=== PATIENT | female | born 1945 | race Caucasian/White ===

== ENCOUNTER 2016-09-21 06:52 | Inpatient (IN) | payer MEDICARE, BC, OTHER ==
[~2016-09-21] VITALS: Ht 160 cm; Wt 105.4 kg
[2016-09-21] MEDS ORDERED: SIMV40TA2 PO (07:22)
[2016-09-21] MEDS ORDERED: LASI20TA PO (07:22)
[2016-09-21] MEDS ORDERED: VESI10TA PO (07:22)
[2016-09-21] MEDS ORDERED: PRESCAP PO (07:22)
[2016-09-21] MEDS ORDERED: CALC600T57 PO (07:22)
[2016-09-21] MEDS ORDERED: METO-207 PO (07:22)
[2016-09-21] MEDS ORDERED: IBUP-1114 PO (07:22)
[2016-09-21] MEDS ORDERED: DRON40TA PO (07:22)
[2016-09-21] MEDS ORDERED: CLAR1TAB2 PO (07:22)
[2016-09-21] MEDS ORDERED: LEVO25TA5 PO (07:22)
[2016-09-21] MEDS ORDERED: OMEP40CA2 PO (07:22)
[2016-09-21] MEDS ORDERED: ONDANSETRON 4MG/2ML VIAL (J2405) IV ONE ×2 (08:00→11:30)
[2016-09-21 08:31] LABS: INR 1.01
[2016-09-21 08:43] LABS: BASO % 0.3 % (0.0-1.0); EOS % 0.4 % (0.0-3.0); LARGE UNSTAINED CELL # 0.1 K/mm3 (0.0-0.4); LARGE UNSTAINED CELL % 0.8 % (0.0-4.0); LYMPH # 0.9 K/mm3 (1.5-4.5); LYMPH % 9.9 % (24.0-44.0); MEAN CORPUSCULAR HEMOGLOBIN 31.1 pg (27.0-33.0); MEAN CORPUSCULAR HGB CONC 32.5 g/dl (32.0-36.5); MEAN CORPUSCULAR VOLUME 95.6 fl (80.0-96.0); MONO # 0.4 K/mm3 (0.0-0.8); NEUTROPHILS # 7.3 K/mm3 (1.8-7.7); NEUTROPHILS % 83.6 % (36.0-66.0); PLATELET COUNT, AUTOMATED 231 k/mm3 (150-450); RED CELL DISTRIBUTION WIDTH 12.7 % (11.5-14.5); WHITE BLOOD COUNT 8.7 K/mm3 (4.0-10.0)
[2016-09-21 08:54] LABS: ALBUMIN 3.2 GM/DL (3.2-5.2); ALBUMIN/GLOBULIN RATIO 0.86 (1.00-1.93); ALKALINE PHOSPHATASE 270 U/L (45-117); ALT/SGPT 451 U/L (12-78); AMYLASE 39 U/L (25-115); ANION GAP 8 MEQ/L (8-16); AST/SGOT 686 U/L (15-37); BILIRUBIN,DIRECT 1.2 MG/DL (0.0-0.2); BLOOD UREA NITROGEN 14 MG/DL (7-18); CALCIUM LEVEL 8.5 MG/DL (8.8-10.2); CARBON DIOXIDE LEVEL 28 MEQ/L (21-32); CHLORIDE LEVEL 106 MEQ/L (98-107); CREATININE FOR GFR 0.73 MG/DL (0.55-1.02); GLOMERULAR FILTRATION RATE > 60.0 (>39); GLUCOSE, FASTING 141 MG/DL (83-110); POTASSIUM SERUM 3.9 MEQ/L (3.5-5.1); SODIUM LEVEL 142 MEQ/L (136-145); TOTAL PROTEIN 6.9 GM/DL (6.4-8.2)
[2016-09-21] MEDS ORDERED: LORATADINE 10 MG TAB PO SCH (09:00)
[2016-09-21] MEDS ORDERED: OMEPRAZOLE 20 MG CAP PO SCH (09:00)
[2016-09-21] MEDS ORDERED: SOLIFENACIN 5 MG TAB PO SCH (09:00)
--- NOTE | 2016-09-21 09:33 | REP ---
Clinical: Chest pain . Comparison: None . Technique: PA view . Findings: The mediastinum and cardiac silhouette are normal. The lung olvera are clear and without acute consolidation, effusion, or pneumothorax. The skeletal structures are intact and normal. Impression: 1. No acute cardiopulmonary process. Signed by Mp Ortiz MD 09/21/2016 09:24 A
--- NOTE | 2016-09-21 09:33 | REP ---
Clinical: Abdominal pain. Technique: Single supine view of the abdomen and pelvis. Findings: Mild fecal stasis cannot be excluded. Evidence for prior cholecystectomy noted. No bowel obstruction or obvious perforation. No organomegaly. Skeletal structures intact. Impression: Mild fecal stasis. Signed by Mp Ortiz MD 09/21/2016 09:25 A
[2016-09-21] MEDS ORDERED: GASTROGRAFIN SOLUTION 30ML (Q9963) PO ONE ×2 (10:30)
--- NOTE | 2016-09-21 10:31 | REP ---
Clinical: Elevated liver function tests. Technique: Real time johnson scale ultrasound examination using curved array transducer. Findings: The liver demonstrates coarse and echo texture suggesting fatty infiltration and/or hepatocellular disease. No focal hepatic lesions are identified. Incidental note is made of a 1.6 cm simple hepatic cyst in the caudate lobe. The pancreas is incompletely evaluated due to interposed bowel gas but visualized portions appear normal. The patient is status post cholecystectomy with compensatory dilatation to the common bile duct measuring 10 mm diameter and a and the right kidney is normal in reniform shape without hydronephrosis and measures 11.3 x 6.1 x 5.1 cm. No ascites. Impression: 1. Coarsened hepatic echotexture consistent with fatty infiltration and/or hepatocellular disease. Incidental 1.6 cm cyst in the caudate lobe. 2. Status post cholecystectomy with normal compensatory CBD dilatation. Signed by Mp Ortiz MD 09/21/2016 10:22 A
[2016-09-21] MEDS ORDERED: ISOVUE-370 76% 100ML VIAL (Q9967) As Ordered ONE (12:04)
--- NOTE | 2016-09-21 12:48 | REP ---
Clinical: Abdominal pain and emesis with history of cancer. Technique: Axial contrast enhanced images from the lung bases to the pubic symphysis using oral and 100 ml Isovue 370 intravenous contrast material with coronal and sagittal re-formations. Comparison: None. Findings: The patient is status post cholecystectomy with significant intrahepatic and extrahepatic biliary ductal dilatation and evidence for soft tissue filling defects presumably obstructing the distal common bile duct at the level of the pancreatic head and ampulla (images 56 - 72). The liver is otherwise unremarkable. Spleen, pancreas, bilateral adrenal glands and kidneys are normal. The enteric system is without obstruction or acute inflammatory process. Normal terminal ileum and appendix identified in the right lower. Colonic/sigmoid diverticula noted without acute diverticulitis. Pelvis demonstrates partially collapsed normal bladder and evidence for prior hysterectomy. Abdominal aorta without aneurysm or dissection. No ascites. No free air. No significant adenopathy. Degenerative changes to the lumbosacral spine. Lung bases demonstrate minimal atelectasis (left greater than right). Impression: 1. Significant intrahepatic and extrahepatic biliary ductal dilatation with filling defects identified in the mid to distal common bile duct extending to the ampulla and compatible with residual choledocholithiasis. GI consultation and ERCP may be warranted. 2. Diverticulosis without acute diverticulitis. 3. Mild basilar atelectasis. Signed by Mp Ortiz MD 09/21/2016 12:40 P
[2016-09-21] MEDS ORDERED: PROA1AER INH (13:43)
[2016-09-21] MEDS ORDERED: BENZ100C5 PO (13:43)
[2016-09-21] MEDS ORDERED: AZEL0.1S3 (13:43)
[2016-09-21] MEDS ORDERED: SIMV10TA2 PO (13:43)
[2016-09-21] MEDS ORDERED: MORPHINE 2 MG/ML 1ML SYRINGE As Ordered ONE (15:38)
[2016-09-21] MEDS ORDERED: MORPHINE 2 MG/ML 1ML SYRINGE IV ONE (15:45)
[2016-09-21] MEDS ORDERED: BISACODYL 5 MG TAB PO PRN (15:45)
[2016-09-21] MEDS ORDERED: MORPHINE 2 MG/ML 1ML SYRINGE IV PRN (15:45)
[2016-09-21] MEDS ORDERED: IBUPROFEN 600 MG TAB PO PRN (16:45)
[2016-09-21 17:21] VITALS: BP 113/56
--- NOTE | 2016-09-21 18:12 | HPE ---
DATE OF ADMISSION: 09/21/2016 PRIMARY CARE PROVIDER: Dr. Jarod Hines at [facility] in [place], [place]. CHIEF COMPLAINT: Abdominal pain, nausea, vomiting. HISTORY OF PRESENT ILLNESS Mrs. Strong is a 71-year-old female with past medical history significant for hypothyroidism, hyperlipidemia, allergic rhinitis, fatty liver, endometrial cancer, and questionable atrial flutter, who presents to the emergency department complaining of abdominal pain. The patient reports that she has been experiencing right upper and epigastric pain since last night. It started about one hour after she ate fried fish and ice cream. She described it as a dull ache radiating to both sides of her back with associated chills, nausea and several episodes of nonbloody, nonbilious emesis. The patient has history of necrotizing cholecystitis in 2011, status post laparoscopic cholecystectomy that had to be converted to an open cholecystectomy secondary to full thickness necrosis of the gallbladder wall. Intraoperative cholangiogram was not performed secondary to inability to cannulate the cystic duct, and the decision was made not to perform a full common bile duct exploration. Gallbladder was removed and the patient was doing well. No symptoms of abdominal pain in the interim until last night. She denies any fevers or significant weight loss. No diarrhea but has history of chronic constipation for which she takes occasional stool softeners. No lightheadedness, dizziness, chest pain/pressure, shortness of breath, hematochezia, melena or urinary complaints. She reports that she was recently treated for bronchitis with antibiotics and has an occasional residual cough, but not as it was prior. In the emergency department the patient's vitals were stable. She was afebrile with normal white count. The patient had an abdomen/pelvis CT performed which revealed intrahepatic and extrahepatic biliary ductal dilatation with filling defects identified in the mid to distal common bile duct extending to the ampulla, compatible with residual choledocholithiasis. At this point in time, hospitalist service was called to admit. The patient has history of elevated liver enzymes dating back to September 2015, where AST was 107 and ALT was 157. In October 2015, she had an ultrasound which revealed fatty infiltration of the liver. PAST MEDICAL HISTORY 1. Hyperthyroidism, status post radioactive iodine in 2000, with resulting hypothyroidism. 2. Gastroesophageal reflux disease (GERD). 3. Hyperlipidemia. 4. Allergic rhinitis. 5. Questionable atrial flutter. 6. Stage I endometrial cancer status post total hysterectomy. 7. Fatty infiltration of the liver. 8. Bladder incontinence. 9. History of mechanical cardioversion in 2011 PAST SURGICAL HISTORY 1. Cholecystectomy in 2011. 2. Complete hysterectomy in 2012. 3. Cataract surgery 2012. 4. Colonoscopy. 5. Tonsillectomy when she was [age]. HOME MEDICATIONS - albuterol sulfate inhaler two puffs inhaled four times a day as needed - azelastine two sprays in each nares daily as needed - benzonatate 100 mg by mouth every eight hours as needed - Lasix 20 mg by mouth daily as needed - ibuprofen 400 mg by mouth every six hours as needed - calcium plus vitamin D two tablets by mouth at night - PreserVision one capsule by mouth at night - Multaq 400 mg by mouth twice daily - Synthroid 25 mcg by mouth daily - Claritin 10 mg by mouth daily - metoprolol 50 mg by mouth at night - omeprazole 20 mg daily - simvastatin 10 mg at night - Vesicare 10 mg by mouth daily ALLERGIES: 1. DILAUDID (breathing issues secondary to receiving too much medication). 2. AMBIEN (severe headache). 3. NICKEL (rash). SOCIAL HISTORY The patient is a former smoker, quit in 1976. Smoked for less than 10 years. Rare alcohol use. No illicit drugs. She lives with her . There is one guinea pig in the home. No recent travel outside of [place], no sick contacts. FAMILY HISTORY She has two children who are relatively healthy. Father had history of ulcers, arthritis, Alzheimer's disease. Mom had history of a stroke and spinal stenosis. REVIEW OF SYSTEMS GENERAL: The patient admits to chills. No fevers or night sweats. No significant weight changes. HEENT: No headache, lightheadedness, dizziness. No blurry or double vision. No acute changes to vision or hearing. CARDIOVASCULAR: Denies any chest pain/pressure. No palpitations or shortness of breath with exertion. She has occasional swelling of her lower extremity. PULMONARY: No shortness of breath. No hemoptysis. Has occasional residual cough from recently being treated for bronchitis. GASTROINTESTINAL: Positive for nausea and several episodes of nonbilious, nonbloody emesis. Positive for right upper quadrant and epigastric dull pain. No hematochezia or melena. Has history of chronic constipation. GENITOURINARY: No increased urinary frequency or urgency. She does have bladder incontinence. No dysuria or hematuria. ENDOCRINE: No history of diabetes. She does have history of hyperthyroidism for which she received radioactive iodine and has residual hypothyroidism. INTEGUMENT: No unusual rashes or skin lesions. MUSCULOSKELETAL: No unusual muscle or joint pains. NEUROLOGIC: No syncope. No paresthesias. PHYSICAL EXAMINATION VITAL SIGNS: Temperature 97.7, pulse of 60, respiratory rate 18, blood pressure 139/60, pulse oximetry 90% on room air. GENERAL: The patient is alert and oriented in no acute distress. HEENT: Normocephalic, atraumatic. Extraocular muscles are intact. Pupils are equally round and reactive to light. No scleral icterus. Moist mucosa. NECK: Supple. No cervical lymphadenopathy. No thyromegaly or jugular venous distension appreciated. HEART: Normal S1, S2, regular rate and rhythm. I did not appreciate a murmur. LUNGS: Clear to auscultation bilaterally. No rales, rhonchi or wheezing. ABDOMEN: Obese, soft, tender in the epigastric region. Bowel sounds are present. No rebound, guarding or rigidity. EXTREMITIES: No cyanosis or edema. Positive pedal pulses bilaterally. SKIN: Warm and dry. No rashes noted. NEUROLOGIC: No focal deficits. Cranial nerves II through XII are grossly intact. Motor and sensation intact. LABORATORY DATA WBC 8.7, hemoglobin 13.7, hematocrit 42.2, platelet count 231. Sodium 142, potassium 3.9, chloride 106, carbon dioxide 28, anion gap 8, BUN 14, creatinine 0.73, GFR greater than 60, fasting glucose 141, calcium 8.5, total bilirubin 2.0, direct bilirubin 1.2, AST 686, ALT 451, alkaline phosphatase 270. Total creatinine kinase 85, total protein 6.9, albumin 3.2, amylase 39, lipase 124. TSH 1.29, free T4 1.3. PT 13.4, INR 1.01, APTT 32.2. IMAGING The patient had a chest x-ray performed which showed no acute cardiopulmonary process. She had abdominal x-ray performed which showed mild fecal stasis. No obstruction or perforation. The gallbladder ultrasound revealed coarsened hepatic echo texture consistent with fatty infiltration and/or hepatocellular disease. Incidental 1.6 cm cyst found, status post cholecystectomy with compensatory dilatation of the common bile duct. Abdomen/pelvis CT revealed significant intrahepatic and extrahepatic biliary ductal dilatation with filling defects identified in the mid to distal common bile duct extending to the ampulla and compatible with residual choledocholithiasis. Diverticulosis without acute diverticulitis and mild basilar atelectasis. The patient had EKG which showed sinus rhythm, left axis deviation, low voltage in the precordial leads and possibly old anterior TX. ASSESSMENT AND PLAN: 1. Choledocholithiasis. The patient has history of necrotizing cholecystitis with cholecystectomy in 2011. Intraoperative cholangiogram was unable to be performed secondary to them being unable to cannulate the cystic duct. Se likely has residual stone from that time; however, she has been asymptomatic until this point. She is afebrile and does not have a white count. CT of the abdomen and pelvis revealed filling defects in the mid to distal common bile duct. Gastroenterology has been consulted and likely to have endoscopic retrograde cholangiopancreatography (ERCP) on Friday. Dr. Godinez recommended antibiotic therapy, so she will be initiated on Zosyn. Pain medication as needed. Anti-emetics as needed. She will be on a clear liquid diet for the time being. 2. Questionable heart arrhythmia. The patient is on Multaq. She believes that she may have been diagnosed with atrial flutter but is unsure of the exact diagnosis. She does have history of mechanical cardioversion in 2011. Continue with her home medication of Multaq. 3. Hypothyroidism. Continue Synthroid. 4. Hyperlipidemia. Continue with simvastatin. 5. Gastroesophageal reflux disease (GERD). Continue with Prilosec. 6. Allergic rhinitis. Continue Claritin. 7. History of bladder incontinence. Continue VESIcare. 8. History of stage I endometrial cancer status post complete hysterectomy and 2012. 9. History of fatty infiltration of the liver. Monitor liver enzymes after ERCP. She does have history of elevated liver enzyme back in 2015, and ultrasound at that time revealed a fatty infiltration of the liver. 10. Deep venous thrombosis (DVT) prophylaxis with subcutaneous heparin. The patient will be admitted as inpatient to medicine/surgery. Dr. Mauricio to take over her care in the morning. CODE STATUS: The patient is full code. My preceptor for this patient encounter was Dr. Teresa Pop. The preceptor was physically present in the building during the encounter and was fully available as needed. All aspects of the patient interview, examination, medical decision making process, and medical care plan development were reviewed and approved by the preceptor. The preceptor is aware and concurs with the plan as stated in the body of this note and will attest to such by his/her co-signature.
[2016-09-21] MEDS: PIPERACILLIN/TAZOBACTAM SOD 3.375 GM in D5W MINI-BAG PLUS 50 ML IV SCH ×2 (18:48→23:45)
[2016-09-21] MEDS: PANTOPRAZOLE 40MG INJ (PROTONIX) (C9113) IV SCH (20:27)
[2016-09-21] MEDS: HEPARIN SOD (PORCINE) 5000 UNITS/ML VIAL SC SCH (20:27)
[2016-09-21] MEDS: DRONEDARONE 400 MG TAB (MULTAQ) PO SCH (20:28)
[2016-09-21] MEDS: METOPROLOL SUCC (TopROL XL) 50MG **XL** TAB PO SCH (20:32)
[2016-09-21] MEDS ORDERED: SIMVASTATIN 10 MG TAB PO SCH (21:00)
[2016-09-21 22:00] VITALS: BP 122/72
[2016-09-22] MEDS: HEPARIN SOD (PORCINE) 5000 UNITS/ML VIAL SC SCH ×3 (05:56→20:24)
[2016-09-22] MEDS: PIPERACILLIN/TAZOBACTAM SOD 3.375 GM in D5W MINI-BAG PLUS 50 ML IV SCH ×4 (05:56→23:35)
[2016-09-22] MEDS: LEVOTHYROXINE 0.025 MG TAB (25 MCG) PO SCH (05:56)
[2016-09-22 06:00] VITALS: BP 113/75
[2016-09-22 06:44] LABS: MEAN CORPUSCULAR HEMOGLOBIN 31.4 pg (27.0-33.0); MEAN CORPUSCULAR HGB CONC 32.6 g/dl (32.0-36.5); MEAN CORPUSCULAR VOLUME 96.5 fl (80.0-96.0); RED CELL DISTRIBUTION WIDTH 12.8 % (11.5-14.5); WHITE BLOOD COUNT 9.3 K/mm3 (4.0-10.0)
[2016-09-22 07:01] LABS: ALBUMIN/GLOBULIN RATIO 1.03 (1.00-1.93); ALKALINE PHOSPHATASE 353 U/L (45-117); ALT/SGPT 460 U/L (12-78); ANION GAP 7 MEQ/L (8-16); AST/SGOT 405 U/L (15-37); BILIRUBIN,TOTAL 5.4 MG/DL (0.2-1.0); BLOOD UREA NITROGEN 8 MG/DL (7-18); CALCIUM LEVEL 8.2 MG/DL (8.8-10.2); CARBON DIOXIDE LEVEL 29 MEQ/L (21-32); CHLORIDE LEVEL 106 MEQ/L (98-107); CREATININE FOR GFR 0.82 MG/DL (0.55-1.02); GLOMERULAR FILTRATION RATE > 60.0 (>39); GLUCOSE, FASTING 104 MG/DL (83-110); SODIUM LEVEL 142 MEQ/L (136-145); TOTAL PROTEIN 5.9 GM/DL (6.4-8.2)
[2016-09-22] MEDS ORDERED: NS 1,000 ML IV SCH (07:45)
[2016-09-22] MEDS ORDERED: KETOROLAC 30 MG/ML VIAL (J1885) IV SCH (08:00)
[2016-09-22] MEDS: DRONEDARONE 400 MG TAB (MULTAQ) PO SCH ×2 (12:27→20:24)
[2016-09-22 14:00] VITALS: BP 138/76
--- NOTE | 2016-09-22 16:01 | IPNPDOC ---
Text Note Date of Service The patient was seen on 09/22/16. NOTE Subjective: Abd pain resolved. Objective: Vitals: (see below) General: No acute distress, laying comfortably in bed. HEENT: Moist mucous membranes. Neck: No JVD or lymphadenopathy Cardiac: RRR, No murmurs Pulm: Clear to auscultation b/l. No wheezing, rhonchi Abd: NT/ND + BS. Obese. Old open karsten scar. Ext: No edema or cyanosis Labs (see below) Images: CT abd/pelvis 09/22/16 Impression: 1. Significant intrahepatic and extrahepatic biliary ductal dilatation with filling defects identified in the mid to distal common bile duct extending to the ampulla and compatible with residual choledocholithiasis. GI consultation and ERCP may be warranted. 2. Diverticulosis without acute diverticulitis. 3. Mild basilar atelectasis. Assessment/Plan 1. Choledocholithiasis - H/o necrotizing cholecystitis with cholecystectomy in 2011. Intraoperative cholangiogram was unable to be performed secondary to them being unable to cannulate the cystic duct. LFTs/ Bili rising, however Abd pain resolved. Afebrile now. On Zosyn. GI on board - plan for ERCP tomorrow. MRI is down so unable to do MRCP today. Hemodynamically stable. 2. H/o arrhythmia on Multaq? will need to obtain outpt PCP records tomorrow. 3. Hypothyroidism. Continue Synthroid. 4. Hyperlipidemia. Continue with simvastatin. 5. Gastroesophageal reflux disease (GERD). Continue with Prilosec. 6. Allergic rhinitis. Continue Claritin. 7. History of bladder incontinence. Continue VESIcare. 8. History of stage I endometrial cancer status post complete hysterectomy and 2012. 9. History of fatty infiltration of the liver. Will need to address after episode of choledocolithiasis resolves. DVT prophy: Hep SQ VS,Fishbone, I+O VS, Fishbone, I+O Laboratory Tests 09/22/16 06:22 Red Blood Count 4.22, Mean Corpuscular Volume 96.5 H, Mean Corpuscular Hemoglobin 31.4, Mean Corpuscular Hemoglobin Concent 32.6, Red Cell Distribution Width 12.8, Calcium Level 8.2 L, Aspartate Amino Transf (AST/SGOT) 405 H, Alanine Aminotransferase (ALT/SGPT) 460 H, Alkaline Phosphatase 353 H, Total Bilirubin 5.4 #H, Total Protein 5.9 L, Albumin 3.0 L Vital Signs Date Time Temp Pulse Resp B/P (MAP) Pulse Ox O2 Delivery O2 Flow Rate FiO2 09/22/16 14:48 Room Air 94.0 09/22/16 06:00 100.0 63 18 113/75 (88) 94 I&O- Last 24 Hours up to 6 AM 09/22/16 05:59 Intake Total 640 ml Output Total 1 ml Balance 639 ml LIANG ALEJANDRO MD September 22, 2016 16:01
--- NOTE | 2016-09-22 19:48 | ECGEPIP ---
Stationary ECG Study [facility] - ED Test Date: 2016-09-21 Pat Name: RAI NEWELL Department: Room: - Gender: F Rn Burn: amy : 1945 Requested By: Lupillo Betancur Order Number: [id number] Reading MD: Chanda Pickering Measurements Intervals [place] Rate: 69 P: -5 AK: 178 QRS: -36 QRSD: 109 T: 29 QT: 434 QTc: 465 Interpretive Statements SINUS RHYTHM MARKED LEFT AXIS DEVIATION LOW QRS VOLTAGE IN PRECORDIAL LEADS POSSIBLE ANTERIOR MYOCARDIAL INFARCTION, PROBABLY OLD NO PRIOR FOR COMPARISON Electronically Signed On 09-22-2016 19:47:45 EDT by Chanda Pickering
[2016-09-22] MEDS: KETOROLAC 30 MG/ML VIAL (J1885) IV PRN (20:23)
[2016-09-22] MEDS: PANTOPRAZOLE 40MG INJ (PROTONIX) (C9113) IV SCH (20:24)
[2016-09-22] MEDS: METOPROLOL SUCC (TopROL XL) 50MG **XL** TAB PO SCH (20:33)
[2016-09-22 22:00] VITALS: BP 122/68
[2016-09-23] VITALS (7 sets, daily range): BP systolic 113–165; BP diastolic 63–73
[2016-09-23] MEDS: LEVOTHYROXINE 0.025 MG TAB (25 MCG) PO SCH (05:43)
[2016-09-23] MEDS: HEPARIN SOD (PORCINE) 5000 UNITS/ML VIAL SC SCH ×3 (05:43→21:29)
[2016-09-23] MEDS: PIPERACILLIN/TAZOBACTAM SOD 3.375 GM in D5W MINI-BAG PLUS 50 ML IV SCH ×4 (05:43→22:54)
[2016-09-23 06:49] LABS: MEAN CORPUSCULAR HEMOGLOBIN 31.9 pg (27.0-33.0); MEAN CORPUSCULAR HGB CONC 32.6 g/dl (32.0-36.5); MEAN CORPUSCULAR VOLUME 97.9 fl (80.0-96.0); RED CELL DISTRIBUTION WIDTH 12.8 % (11.5-14.5); WHITE BLOOD COUNT 5.1 K/mm3 (4.0-10.0)
[2016-09-23 06:54] LABS: ALBUMIN 2.7 GM/DL (3.2-5.2); ALBUMIN/GLOBULIN RATIO 0.84 (1.00-1.93); ALKALINE PHOSPHATASE 269 U/L (45-117); ALT/SGPT 277 U/L (12-78); ANION GAP 3 MEQ/L (8-16); AST/SGOT 158 U/L (15-37); BILIRUBIN,TOTAL 3.3 MG/DL (0.2-1.0); BLOOD UREA NITROGEN 6 MG/DL (7-18); CALCIUM LEVEL 8.3 MG/DL (8.8-10.2); CARBON DIOXIDE LEVEL 31 MEQ/L (21-32); CHLORIDE LEVEL 112 MEQ/L (98-107); CREATININE FOR GFR 0.69 MG/DL (0.55-1.02); GLOMERULAR FILTRATION RATE > 60.0 (>39); GLUCOSE, FASTING 102 MG/DL (83-110); POTASSIUM SERUM 3.6 MEQ/L (3.5-5.1); SODIUM LEVEL 146 MEQ/L (136-145); TOTAL PROTEIN 5.9 GM/DL (6.4-8.2)
[2016-09-23] MEDS ORDERED: PREVNAR 13 VACCINE SYRINGE (CPT CODE:90670) IM SCH (09:00)
[2016-09-23] MEDS: ONDANSETRON 4MG/2ML VIAL (J2405) IV PRN ×2 (09:06→22:54)
[2016-09-23] MEDS: KETOROLAC 30 MG/ML VIAL (J1885) IV PRN (09:07)
[2016-09-23] MEDS: DRONEDARONE 400 MG TAB (MULTAQ) PO SCH ×2 (09:07→21:00)
--- NOTE | 2016-09-23 10:45 | IPN ---
DATE: 09/23/2016 SUBJECTIVE: The patient was seen this morning at bedside. She states that she had some trouble sleeping. She does have pulse oximetry in place without any significant desaturations overnight. She denies any abdominal pain, nausea or vomiting. She did have a low grade temperature last night of 100.1. No chest pain/pressure, palpitations or shortness of breath. Vitals are stable this morning. No diarrhea. OBJECTIVE: Vital Signs: Temperature 98.1, pulse 55, respiratory rate 18, blood pressure 113/67, pulse oximetry 97% on 2 liters. General: The patient is alert and oriented in no acute distress. HEENT: Normocephalic, atraumatic. Extraocular muscles are intact. Moist mucosa. Neck: Supple. No cervical lymphadenopathy. No thyromegaly. Heart: Normal S1, S2, regular. No murmur appreciated. Lungs: Clear to auscultation bilaterally. Abdomen: Obese, soft, nontender. No rebound, guarding or rigidity. Bowel sounds are present. Extremities: No cyanosis or edema. Positive pedal pulses bilaterally. Skin: Warm and dry. No rashes noted. Neurologic: No focal deficits. Cranial nerves II-XII are grossly intact. Motor sensation intact. LABORATORY DATA: WBC 5.1, hemoglobin 12.1, hematocrit 37.1, platelet count 185. Sodium 146, potassium 2.6, chloride 112, carbon dioxide 31, anion gap 3, BUN 6, creatinine 0.69, GFR greater than 60, fasting glucose 102, calcium 8.3, total bilirubin 3.3, AST 158, ALT 277, alkaline phosphatase 269, total protein 5.9, albumin 2.7. ASSESSMENT/PLAN: 1. Choledocholithiasis. The patient has history of necrotizing cholecystitis with cholecystectomy in 2011. Intraoperative cholangiogram was unable to be performed secondary to them not being able to cannulate the cystic duct. She had a CT of the abdomen which showed filling defects in the mid to distal common bile duct. Gastroenterology is on board and she will have ERCP done today, later on this afternoon. She remains on Zosyn. No GI symptoms at present. Her bilirubin as well as liver enzymes are trending downwards. She is afebrile this morning and vitals are stable. Pain medication as needed. 2. Mild hypernatremia. Sodium is currently 146. Will continue to monitor for now. Once she is eating again, will encourage by mouth (p.o.) intake. 3. Questionable heart arrhythmia. The patient is on Multaq and it is not completely clear why she is on this. She does give history of mechanical cardioversion in 2011 presumed for possibly atrial flutter. Will obtain records from her primary care provider today to try to establish to the actual diagnosis. The patient reports that she is also on metoprolol since that time. 4. Hypothyroidism. Continue Synthroid. 5. Hyperlipidemia. Continue with simvastatin. 6. Gastroesophageal reflux disease. The patient is currently on IV Protonix while inpatient. 7. Allergic rhinitis. Continue Claritin. 8. History of bladder incontinence. Continue VESIcare. 9. History of stage I endometrial cancer status post complete hysterectomy in 2012. 10. History of fatty infiltration of liver. Will continue to monitor liver enzymes following ERCP. If they remain elevated, this can be followed as outpatient. She had an ultrasound done last year which only showed fatty infiltration of the liver. 11. Deep vein thrombosis (DVT) prophylaxis. The patient is on subcutaneous heparin. My preceptor for this patient encounter was Dr. Niraj Mauricio. The preceptor was physically present in the building during the encounter and was fully available. As needed, all aspects of the patient interview, examination, medical decision making process, and medical care plan development were reviewed and approved by the preceptor. The preceptor is aware and concurs with the plan as stated in the body of this note and will attest to such by his/her cosignature.
[2016-09-23] MEDS ORDERED: SIMETHICONE 40MG/0.6ML DROPS 30ML As Ordered ONE (15:38)
[2016-09-23] MEDS ORDERED: ONDANSETRON 4MG/2ML VIAL (J2405) As Ordered ONE (16:25)
[2016-09-23] MEDS ORDERED: PROPOFOL 200 MG/20 ML VIAL As Ordered ONE (16:25)
[2016-09-23] MEDS ORDERED: ROCURONIUM BROMIDE 50 MG/5 ML VIAL As Ordered ONE (16:25)
[2016-09-23] MEDS ORDERED: LIDOCAINE 2% INJ 100 MG/5 ML SDV (FOR ANES.) As Ordered ONE (16:26)
[2016-09-23] MEDS ORDERED: ISOVUE-300 61% 50ML VIAL (Q9967) As Ordered ONE ×2 (16:26→17:21)
[2016-09-23] MEDS ORDERED: fentaNYL 100 MCG/2 ML INJECTION (J3010) As Ordered ONE (16:27)
[2016-09-23] MEDS ORDERED: MIDAZOLAM INJ 2 MG/2 ML VIAL (J2250) As Ordered ONE (16:27)
[2016-09-23] MEDS ORDERED: ePHEDrine SULFATE 25 MG/5 ML(5MG/ML) SYRINGE As Ordered ONE ×2 (17:41→17:46)
[2016-09-23] MEDS ORDERED: SUGAMMADEX SODIUM 500 MG/5 ML VIAL (BRIDION) As Ordered ONE (17:54)
--- NOTE | 2016-09-23 18:26 | ROOR ---
Patient Name: Alyssa Strong Procedure Date: 09/23/2016 4:48 PM Date of : 1945 Age: 71 Room: Main OR Gender: Female Note Status: Finalized Procedure: ERCP Indications: Abdominal pain of suspected biliary origin, Abnormal abdominal CT, Bile duct stone on Computed Tomogram Scan, Evaluation and possible treatment of bile duct stone(s), Jaundice Providers: Tip GODINEZ MD Referring MD: 1. No Referring Physician 1. No Referring Physician, Admin. Requesting Provider: Medicines: General Anesthesia Complications: No immediate complications. Procedure: Pre-Anesthesia Assessment: - The heart rate, respiratory rate, oxygen saturations, blood pressure, adequacy of pulmonary ventilation, and response to care were monitored throughout the procedure. The Duodenoscope was introduced through the mouth, and advanced to the duodenum and used to inject contrast into the bile duct. The ERCP was accomplished without difficulty. The patient tolerated the procedure well. Findings: The floorworker lasting film was normal. The esophagus was successfully intubated under direct vision. The scope was advanced to a normal major papilla in the descending duodenum without detailed examination of the pharynx, larynx and associated structures, and upper GI tract. The upper GI tract was grossly normal. A straight Roadrunner wire was passed into the biliary tree. The bile duct was then deeply cannulated over the guidewire. Contrast was injected. I personally interpreted the bile duct images. Ductal flow of contrast was adequate. Image quality was adequate. Contrast extended to the entire biliary tree. Opacification of the entire biliary tree except for the gallbladder was done. A cholecystectomy had been performed. The entire biliary tree was markedly dilated. The entire main bile duct was filled with many small and large stones, sludge and debris. A 9 mm biliary sphincterotomy was made with a traction (standard) sphincterotome using ERBE electrocautery. There was no post-sphincterotomy bleeding. To discover objects, the biliary tree was swept with a 15 mm balloon starting at the bifurcation. Sludge was swept from the duct. Many stones were removed. Large quantities of debris/sludge and numerous soft stones were extracted with repeated passes with the balloon. The biliary tree is markedly dilated and density of contrast at some point prohibits a good clean cholangiogram. While I am fairly certain that the duct is now free of debris and stones, there is a possibility of a smaller stone or debis escaped detection and has been left behind today. I decided to place a stent and allow for decompression of the bile duct, in order to return in 1-2 months for a better cholangiogram. One 10 Fr by 7 cm temporary stent was placed into the common bile duct. Bile flowed through the stent. The stent was in good position. Impression: - The entire biliary tree was markedly dilated. - Large Choledocholithiasis/debris was found in the common bile duct. - At least partial, if not complete removal was accomplished with biliary sphincterotomy and balloon sweep. - A 10F, 7 cm plastic stent was inserted. Recommendation: - Repeat ERCP in 2 months for retreatment. - Advance diet as tolerated. - Watch for pancreatitis, bleeding, perforation, and cholangitis. - Observe patient's clinical course following today's ERCP with therapeutic intervention. Tip Godinez MD Tip GODINEZ MD 09/23/2016 6:26:15 PM This report has been signed electronically. Number of Addenda: 0 Note Initiated On: 09/23/2016 4:48 PM Estimated Blood Loss: Estimated blood loss: none.
[2016-09-23] MEDS ORDERED: fentaNYL 100 MCG/2 ML INJECTION (J3010) IV PRN (18:30)
[2016-09-23] MEDS ORDERED: ONDANSETRON 4MG/2ML VIAL (J2405) IV PRN (18:30)
[2016-09-23] MEDS ORDERED: LR 1,000 ML IV SCH (18:30)
[2016-09-23] MEDS ORDERED: MORPHINE 2 MG/ML 1ML SYRINGE IV PRN (18:30)
[2016-09-23] MEDS ORDERED: PERCOCET 5MG/325MG TAB PO PRN (18:30)
[2016-09-23] MEDS ORDERED: FAMOTIDINE 20 MG TAB PO PRN (19:15)
[2016-09-23] MEDS: METOPROLOL SUCC (TopROL XL) 50MG **XL** TAB PO SCH (21:31)
[2016-09-24] VITALS (7 sets, daily range): BP systolic 125–157; BP diastolic 58–71
[2016-09-24] MEDS: HEPARIN SOD (PORCINE) 5000 UNITS/ML VIAL SC SCH ×3 (05:30→20:35)
[2016-09-24] MEDS: LEVOTHYROXINE 0.025 MG TAB (25 MCG) PO SCH (05:30)
[2016-09-24] MEDS: PIPERACILLIN/TAZOBACTAM SOD 3.375 GM in D5W MINI-BAG PLUS 50 ML IV SCH ×3 (05:30→17:00)
[2016-09-24 06:34] LABS: MEAN CORPUSCULAR HEMOGLOBIN 31.3 pg (27.0-33.0); MEAN CORPUSCULAR HGB CONC 32.5 g/dl (32.0-36.5); MEAN CORPUSCULAR VOLUME 96.5 fl (80.0-96.0); RED CELL DISTRIBUTION WIDTH 12.9 % (11.5-14.5); WHITE BLOOD COUNT 9.7 K/mm3 (4.0-10.0)
[2016-09-24 06:50] LABS: ALBUMIN 2.5 GM/DL (3.2-5.2); ALBUMIN/GLOBULIN RATIO 0.74 (1.00-1.93); ALKALINE PHOSPHATASE 252 U/L (45-117); ALT/SGPT 204 U/L (12-78); ANION GAP 8 MEQ/L (8-16); AST/SGOT 91 U/L (15-37); BILIRUBIN,TOTAL 2.5 MG/DL (0.2-1.0); BLOOD UREA NITROGEN 6 MG/DL (7-18); CALCIUM LEVEL 8.1 MG/DL (8.8-10.2); CARBON DIOXIDE LEVEL 28 MEQ/L (21-32); CHLORIDE LEVEL 106 MEQ/L (98-107); CREATININE FOR GFR 0.63 MG/DL (0.55-1.02); GLOMERULAR FILTRATION RATE > 60.0 (>39); GLUCOSE, FASTING 100 MG/DL (83-110); POTASSIUM SERUM 3.4 MEQ/L (3.5-5.1); SODIUM LEVEL 142 MEQ/L (136-145); TOTAL PROTEIN 5.9 GM/DL (6.4-8.2)
[2016-09-24] MEDS ORDERED: POTASSIUM CHLORIDE 10 MEQ SR TABLET PO ONE (07:30)
--- NOTE | 2016-09-24 08:50 | REP ---
ERCP EXAMINATION: 12 views. HISTORY: Abdominal pain. 6 minutes 6 seconds of fluoroscopy time is reported. FINDINGS: A sequence of 12 fluoroscopically obtained last image hold spot radiographs of the right upper quadrant document endoscopic common bile duct cannulation, contrast injection and balloon catheter manipulation. Early images demonstrate filling defects in the choledochus consistent with choledocholithiasis. Final films demonstrate a common bile duct stent in place. The common bile duct is dilated and the a few visualized intrahepatic bile ducts are somewhat prominent. Signed by Kole Pang MD 09/24/2016 05:07 P
[2016-09-24] MEDS: DRONEDARONE 400 MG TAB (MULTAQ) PO SCH ×2 (08:58→20:34)
[2016-09-24] MEDS ORDERED: diphenhydrAMINE 25 MG CAP PO PRN (15:30)
--- NOTE | 2016-09-24 17:36 | IPN ---
DATE: 09/24/2016 SUBJECTIVE: Ms. Strong was seen this morning at bedside. She has been afebrile. Vital signs are stable. She denies any nausea, vomiting, abdominal pain, diarrhea. No chest pain/pressure, palpitations, or shortness of breath. The patient tolerated endoscopic retrograde cholangiopancreatography (ERCP) well without any significant issues. She is tolerating a diet without increase in symptoms. OBJECTIVE: VITAL SIGNS: Temperature 99.1, pulse 68, respiratory rate 19, blood pressure 127/59, pulse oximetry 94% on room air. GENERAL: The patient is alert and oriented in no acute distress. HEENT: Normocephalic, atraumatic. Extraocular muscles are intact. Moist mucosa. NECK: Supple. No cervical lymphadenopathy. No thyromegaly. HEART: Normal S1, S2, regular rate and rhythm. No murmur appreciated. LUNGS: Clear to auscultation bilaterally. No rales, rhonchi, or wheezing. ABDOMEN: Soft, obese, nontender. No rebound, guarding, or rigidity. Bowel sounds are present. EXTREMITIES: No cyanosis or edema. Positive pedal pulses bilaterally. SKIN: Warm and dry. No rashes noted. NEUROLOGIC: No focal deficits. Cranial nerves: II-XII are grossly intact. Motor and sensation intact. LABORATORY DATA: WBC 9.7, hemoglobin 11.7, hematocrit 36.1, platelet count 180. Sodium 142, potassium 3.4, chloride 106, carbon dioxide 28, anion gap 8, BUN 6, creatinine 0.63, GFR greater than 60, fasting glucose 100, calcium 8.1. Total bilirubin 2.5, AST 91, ALT 204, alkaline phosphatase 252, total protein 5.9, albumin 2.5. ASSESSMENT AND PLAN: 1. Choledocholithiasis. The patient has history of necrotizing cholecystitis with cholecystectomy in 2011. Intraoperative cholangiogram was unable to be performed secondary to not being able to cannulate the cystic duct. She underwent endoscopic retrograde cholangiopancreatography (ERCP) yesterday, and a large stone was found with biliary tree dilatation. Biliary sphincterotomy and balloon sweep was performed, and a plastic stent was inserted. The patient will need to repeat ERCP in 2 months for retreatment. She has been doing well after the procedure without any nausea, vomiting, or abdominal pain. She has been tolerating oral intake. She remains on Zosyn. Bilirubin and liver enzymes are trending downward. She is afebrile and vital signs are stable. 2. Heart arrhythmia continue with Multaq. She has history of mechanical cardioversion in 2011. She also reports being on metoprolol since being diagnosed with this arrhythmia. 3. Hypothyroidism. Continue Synthroid. 4. Hyperlipidemia. Continue simvastatin. 5. Gastroesophageal reflux disease (GERD). The patient is on the patient is on Pepcid. 6. Allergic rhinitis. Continue Claritin. 7. History of bladder incontinence. Continue VESIcare. 8. History of fatty infiltration of liver. Monitor liver enzymes following ERCP. 9. History of stage I endometrial cancer status post complete hysterectomy in 2012. 10. Deep vein thrombosis (DVT) prophylaxis. The patient is on subcutaneous heparin.
[2016-09-24] MEDS: METOPROLOL SUCC (TopROL XL) 50MG **XL** TAB PO SCH (20:34)
[2016-09-25] MEDS: LEVOTHYROXINE 0.025 MG TAB (25 MCG) PO SCH (05:14)
[2016-09-25] MEDS: HEPARIN SOD (PORCINE) 5000 UNITS/ML VIAL SC SCH (05:15)
[2016-09-25 06:00] VITALS: BP 156/68
[2016-09-25 07:08] LABS: MEAN CORPUSCULAR HEMOGLOBIN 31.6 pg (27.0-33.0); MEAN CORPUSCULAR HGB CONC 32.8 g/dl (32.0-36.5); MEAN CORPUSCULAR VOLUME 96.6 fl (80.0-96.0); RED CELL DISTRIBUTION WIDTH 12.6 % (11.5-14.5); WHITE BLOOD COUNT 6.4 K/mm3 (4.0-10.0)
[2016-09-25 07:35] LABS: ALBUMIN 2.5 GM/DL (3.2-5.2); ALBUMIN/GLOBULIN RATIO 0.71 (1.00-1.93); ALKALINE PHOSPHATASE 215 U/L (45-117); ALT/SGPT 167 U/L (12-78); ANION GAP 5 MEQ/L (8-16); AST/SGOT 71 U/L (15-37); BILIRUBIN,TOTAL 1.5 MG/DL (0.2-1.0); BLOOD UREA NITROGEN 8 MG/DL (7-18); CALCIUM LEVEL 8.4 MG/DL (8.8-10.2); CARBON DIOXIDE LEVEL 32 MEQ/L (21-32); CHLORIDE LEVEL 107 MEQ/L (98-107); CREATININE FOR GFR 0.59 MG/DL (0.55-1.02); GLOMERULAR FILTRATION RATE > 60.0 (>39); GLUCOSE, FASTING 88 MG/DL (83-110); POTASSIUM SERUM 3.7 MEQ/L (3.5-5.1); SODIUM LEVEL 144 MEQ/L (136-145)
[2016-09-25] MEDS: DRONEDARONE 400 MG TAB (MULTAQ) PO SCH (09:57)
--- NOTE | 2016-09-25 17:40 | DSES ---
DATE OF ADMISSION: 09/21/2016 DATE OF DISCHARGE: 09/25/2016 CONSULTANTS: Dr. Godinez, gastroenterology. DISCHARGE DIAGNOSES: 1.cholelithiasis status post ERCP. 2. Heart arrhythmia. 3. Hypothyroidism. 4. Hyperlipidemia. 5. Allergic rhinitis. 6. Fatty infiltration of liver. 7. History of bladder incontinence. 8. History of stage I endometrial cancer status post hysterectomy. DISCHARGE MEDICATIONS: - albuterol inhaler 2 pills inhaled four times a day as needed - azelastine 2 sprays in each nares daily as needed - Benzonatate 100 mg by mouth every 8 hours as needed - calcium and vitamin D 2 tablets by mouth at night - Multaq 400 mg by mouth twice daily - Lasix 20 mg by mouth daily as needed - ibuprofen 400 mg by mouth every 6 hours as needed - Synthroid 25 mcg by mouth daily - Claritin 10 mg by mouth daily - metoprolol succinate 50 mg by mouth at night - omeprazole 20 mg by mouth daily - PreserVision 1 capsule by mouth at night - Simvastatin 10 mg by mouth at night - Vesicare 10 mg by mouth daily BRIEF HOSPITAL COURSE: The patient presented with complaints of abdominal pain, specifically in the right upper and epigastric region that began the night before she presented to the ER. She describes it as a dull ache radiating to both sides of her back with associated chills, nausea, several episodes of nonbloody, nonbilious emesis. She has history of necrotizing cholecystitis in 2011, status post laparoscopic, cholecystectomy that had to be converted to an open cholecystectomy secondary to full thickness necrosis of the gallbladder wall. Intraoperative cholangiogram was not able to be performed secondary to being unable to cannulate the cystic duct and the decision was made not to perform a full common bile duct exploration. No issues of gallbladder was removed until the night prior to admission. She denied any fevers, weight loss, diarrhea, dizziness, headache, lightheadedness, chest pain, shortness of breath, hematochezia, melena or urinary complaints. In the emergency department she was afebrile with normal white count. Abdomen/Pelvic CT was performed which revealed intrahepatic and extrahepatic biliary ductal dilatation with filling defects identified in the mid to distal common bile duct extended to the ampulla compatible with residual choledocholithiasis. She was admitted to the hospital initiated on Zosyn. Gastroenterology consulted for ERCP. She was initiated on a clear liquid diet. The patient was to have ERCP on the , where a large choledocholithiasis was found in the common bile duct. Biliary sphincterotomy and balloon sweep was performed and a 7 cm plastic stent was inserted. The patient tolerated the procedure well. She did not have any other recurrence of nausea, vomiting or abdominal pain. She remained afebrile. Tolerated an oral diet. She presented with elevated bilirubin as well as elevated liver enzymes, which significantly improved during hospitalization. All other medical conditions remained stable and she was subsequently stable for discharge. LABORATORY DATA AT DISCHARGE: WBC 6.4, hemoglobin 12.1, hematocrit 37.0, platelet count 199, sodium 144, potassium 3.7, chloride 107, carbon dioxide 32, anion gap 5, BUN 8, creatinine 0.59, GFR greater than 60, fasting glucose 88, calcium 8.4, total bilirubin 1.5, AST 71, ALT 167, alkaline phosphatase 215, albumin 6.0. Albumin 2.5, total protein 6.0. IMAGING STUDIES: During hospitalization the patient had a chest x-ray which showed no acute cardiopulmonary process. She had an abdominal x-ray which showed mild fecal stasis. She had a gallbladder ultrasound, which revealed course and hepatic echo texture consistent with fatty infiltration and/or hepatocellular disease. incidental 1.6 cm cyst in the caudate lobe status post cholecystectomy. Abdominal Ct as stated above. PHYSICAL EXAMINATION ON DISCHARGE: Temperature 98.2, pulse 64, respiratory rate 14, blood pressure 156/68, pulse ox 95% on room air. General: The patient is alert and oriented x3 in no acute distress. HEENT: Normocephalic, atraumatic. Extraocular muscles are intact. Pupils are equally round and reactive to light. No scleral icterus. Neck: Supple. No cervical lymphadenopathy. No thyromegaly. Heart: Normal S1-S2, regular rate and rhythm. No murmur. No murmur appreciated. Lungs: Clear to auscultation bilaterally. No rales, rhonchi or wheezing. Abdomen: Soft, nontender, nondistended. Positive bowel sounds. No rebound, guarding or rigidity. Extremities: No cyanosis or edema. Positive pedal pulses bilaterally. Skin: Warm and dry. No rashes noted. Neurologic: No focal deficits. Cranial nerves: II through XII are grossly intact. Motor and sensation intact. DISCHARGE INSTRUCTIONS: The patient is discharged in stable condition. She should followup with her primary care provider in 1 week. Activity as tolerated. Low-cholesterol, low-sodium diet. Will need followup with Dr. Godinez for repeat ERCP in 2 months. Return to the emergency department with worsening or recurring symptoms including but not limited to nausea, vomiting, abdominal pain, dizziness, chest pain, shortness of breath, etc. Time spent on discharge greater than 30 minutes. My preceptor for this patient encounter was Dr. Cintia Thomas. The preceptor was physically present in the building during the encounter and was fully available as needed. All aspects of the patient interview, examination, medical decision making process, and medical care plan development were reviewed and approved by the preceptor. The preceptor is aware and concurs with the plan as stated in the body of this note and will attest to such by his/her co-signature.
== END 2016-09-25 13:20 | disposition home or self-care (01) | DRG 445 ==
LOC: M ED 08:13 → M ED INP 14:48 → M MS5PR 17:09
PROVIDERS: ADMIT Internal Medicine Nephrology; ATTEND Internal Medicine
PROC: 0FC98ZZ Extirpation of Matter from Common Bile Duct, Via Natural or Artificial Opening Endoscopic (ICD-10-PCS; 2016-09-23)
PROC: 0F798DZ Dilation of Common Bile Duct with Intraluminal Device, Via Natural or Artificial Opening Endoscopic (ICD-10-PCS; principal; 2016-09-23 15:00)
DX: K80.51 Calculus of bile duct without cholangitis or cholecystitis with obstruction (principal); E87.0 Hyperosmolality and hypernatremia; E03.9 Hypothyroidism, unspecified; E78.5 Hyperlipidemia, unspecified; Z79.899 Other long term (current) drug therapy; K76.0 Fatty (change of) liver, not elsewhere classified; K21.9 Gastro-esophageal reflux disease without esophagitis; Z88.8 Allergy status to other drugs, medicaments and biological substances; Z87.891 Personal history of nicotine dependence

== ENCOUNTER 2016-12-12 08:38 | Day surgery (SDC) | payer MEDICARE, BC, OTHER ==
[~2016-12-12] VITALS: Ht 160 cm; Wt 102.1 kg
[~2016-12-12 08:38] MED LIST: ASPI1TAB PO; AZEL0.1S3; BENZ100C5 PO; CALC600T57 PO; CLAR1TAB2 PO; CLOT1CRE TOP; DRON40TA PO; IBUP-1114 PO; LASI20TA PO; LEVO25TA5 PO; METO1TAB7 PO; OMEP20CA3 PO; OMEP40CA2 PO; PRESCAP PO; PROAAER10 INH; SIMV10TA2 PO; SIMV40TA2 PO; VESI10TA2 PO
[2016-12-12] MEDS ORDERED: LR 1,000 ML IV ONE (09:00)
[2016-12-12] MEDS ORDERED: NS 1,000 ML IV ONE (09:00)
[2016-12-12] MEDS ORDERED: LIDOCAINE 2% INJ 100 MG/5 ML SDV (FOR ANES.) As Ordered ONE (10:11)
[2016-12-12] MEDS ORDERED: MIDAZOLAM INJ 2 MG/2 ML VIAL (J2250) As Ordered ONE (10:11)
[2016-12-12] MEDS ORDERED: fentaNYL 100 MCG/2 ML INJECTION (J3010) As Ordered ONE (10:11)
[2016-12-12] MEDS ORDERED: PROPOFOL 200 MG/20 ML VIAL As Ordered ONE (10:11)
[2016-12-12] MEDS ORDERED: ONDANSETRON 4MG/2ML VIAL (J2405) As Ordered ONE (10:11)
[2016-12-12] MEDS ORDERED: SUCCINYLCHOLINE 100 MG/5 ML SYRINGE (J0330) As Ordered ONE (10:15)
[2016-12-12] MEDS ORDERED: ISOVUE-300 61% 50ML VIAL (Q9967) As Ordered ONE (11:36)
--- NOTE | 2016-12-12 13:03 | ROOR ---
Patient Name: Alyssa Strong Procedure Date: 12/12/2016 11:59 AM Date of : 1945 Age: 71 Room: [facility] Gender: Female Note Status: Finalized Procedure: ERCP Indications: Evaluation and possible treatment of bile duct stone(s), Biliary stent removal Providers: Tip GODINEZ MD Referring MD: 1. No Referring Physician 1. No Referring Physician, Admin. Requesting Provider: Medicines: General Anesthesia Complications: No immediate complications. Procedure: Pre-Anesthesia Assessment: - The heart rate, respiratory rate, oxygen saturations, blood pressure, adequacy of pulmonary ventilation, and response to care were monitored throughout the procedure. The Endoscope was introduced through the mouth, and advanced to the duodenum and used to inject contrast into the bile duct. The ERCP was accomplished without difficulty. The patient tolerated the procedure well. Findings: A biliary stent was visible on the activities director scouting film. The esophagus was successfully intubated under direct vision without detailed examination of the pharynx, larynx, and associated structures, and upper GI tract. The upper GI tract was grossly normal. The major papilla was edematous. The major papilla was lacerated. This was biopsied with a cold forceps for histology. One stent originating in the common bile duct was emerging from the major papilla. One stent was removed from the biliary tree using a snare. A straight Roadrunner wire was passed into the biliary tree. The bile duct was then deeply cannulated over the guidewire. Contrast was injected. I personally interpreted the bile duct images. Ductal flow of contrast was adequate. Image quality was adequate. Opacification of the entire biliary tree except for the gallbladder was successful. The lower third of the main bile duct contained multiple stones, the largest of which was 4 mm in diameter. The biliary tree was swept with a 12 mm balloon starting at the bifurcation. All stones were removed. Impression: - The major papilla appeared granular from previous sphincterotomy-This was biopsied. - One stent from the common bile duct was seen in the major papilla.- This stent was removed. - The gallbladder is not visualized. It had been previously removed. - Choledocholithiasis was found. Complete removal was accomplished by balloon sweep. Recommendation: - Observe patient's clinical course. - I anticipate no further need for intervention. - Return to primary care physician as previously scheduled. Attending Participation: I personally performed the entire procedure. Tip Godinez MD Tip GODINEZ MD 12/12/2016 1:02:50 PM This report has been signed electronically. Number of Addenda: 0 Note Initiated On: 12/12/2016 11:59 AM Estimated Blood Loss: Estimated blood loss: none.
[2016-12-12] MEDS ORDERED: LEVALBUTEROL 1.25 MG/0.5 ML CONCENTRATE NEB As Ordered ONE (13:16)
[2016-12-12] MEDS ORDERED: ONDANSETRON 4MG/2ML VIAL (J2405) IV PRN (13:30)
[2016-12-12] MEDS ORDERED: MEPERIDINE INJ 25 MG/ML VIAL (J2175) IV PRN (13:30)
[2016-12-12] MEDS ORDERED: LR 1,000 ML IV SCH (13:30)
[2016-12-12] MEDS ORDERED: fentaNYL 100 MCG/2 ML INJECTION (J3010) IV PRN (13:30)
[2016-12-12] MEDS ORDERED: PERCOCET 5MG/325MG TAB PO PRN (13:30)
[2016-12-12] MEDS ORDERED: METOCLOPRAMIDE INJ 10MG/2ML VIAL (J2765) IV PRN (13:30)
[2016-12-12] MEDS ORDERED: LEVALBUTEROL 1.25 MG/0.5 ML CONCENTRATE NEB INH ONE (13:45)
--- NOTE | 2016-12-12 14:17 | REP ---
C-ARM VIEWS DURING ERCP: Multiple C-arm views are performed during the ERCP exam. The common bile duct is catheterized and contrast injected with subsequent balloon catheter manipulation. The common bile duct is again noted to be significantly dilated as seen on prior study of 09/23/2016. There is passage of contrast into the duodenum. 4 minutes 31 seconds of fluoroscopy time utilized for the procedure. Signed by Jason Song MD 12/13/2016 05:02 P
[2016-12-12 14:50] VITALS: BP 127/90
== END 2016-12-12 15:05 | disposition home or self-care (01) ==
LOC: M SDC 08:38
PROVIDERS: ATTEND Internal Medicine Gastroenterology
DX: K83.9 Disease of biliary tract, unspecified (principal); K80.50 Calculus of bile duct without cholangitis or cholecystitis without obstruction; Z46.59 Encounter for fitting and adjustment of other gastrointestinal appliance and device; Z96.89 Presence of other specified functional implants; Z85.41 Personal history of malignant neoplasm of cervix uteri; I48.91 Unspecified atrial fibrillation; I10 Essential (primary) hypertension; E78.5 Hyperlipidemia, unspecified; E05.90 Thyrotoxicosis, unspecified without thyrotoxic crisis or storm; K57.32 Diverticulitis of large intestine without perforation or abscess without bleeding; K21.9 Gastro-esophageal reflux disease without esophagitis; Z87.891 Personal history of nicotine dependence; Z79.82 Long term (current) use of aspirin; Z79.899 Other long term (current) drug therapy; Z88.8 Allergy status to other drugs, medicaments and biological substances
CPT/HCPCS: 43261; 43264; 43275; 74330; 88305; J0330; J2250; J2405; J3010; Q9967

== ENCOUNTER → 2017-03-13 | Outpatient (REF) | payer MEDICARE, BC, OTHER ==
[2017-03-13 13:16] LABS: BASO % 0.2 % (0.0-1.0); EOS # 0.3 10^3/uL (0.0-0.50); EOS % 3.6 % (0.0-3.0); IMMATURE GRANULOCYTE % 0.2 % (0-0); LYMPH # 1.8 10^3/uL (1.5-4.5); LYMPH % 21.2 % (24.0-44.0); MEAN CORPUSCULAR HEMOGLOBIN 30.5 pg (27.0-33.0); MEAN CORPUSCULAR HGB CONC 32.2 g/dl (32.0-36.5); MEAN CORPUSCULAR VOLUME 94.5 fl (80.0-96.0); MONO # 0.8 10^3/uL (0.0-0.8); MONO % 8.9 % (0.0-5.0); NEUTROPHILS # 5.7 10^3/uL (1.8-7.7); NEUTROPHILS % 65.9 % (36.0-66.0); PLATELET COUNT, AUTOMATED 247 10^3/uL (150-450); RED CELL DISTRIBUTION WIDTH 12.8 % (11.5-14.5); WHITE BLOOD COUNT 8.6 10^3/uL (4.0-10.0)
[2017-03-13 13:41] LABS: ALBUMIN 3.3 GM/DL (3.2-5.2); ALBUMIN/GLOBULIN RATIO 1.22 (1.00-1.93); ALKALINE PHOSPHATASE 75 U/L (45-117); ALT/SGPT 17 U/L (12-78); ANION GAP 9 MEQ/L (8-16); AST/SGOT 9 U/L (7-37); BILIRUBIN,TOTAL 0.9 MG/DL (0.2-1.0); BLOOD UREA NITROGEN 16 MG/DL (7-18); CALCIUM LEVEL 9.2 MG/DL (8.8-10.2); CARBON DIOXIDE LEVEL 26 MEQ/L (21-32); CHLORIDE LEVEL 108 MEQ/L (98-107); CHOLESTEROL LEVEL 155 MG/DL (<200); CREATININE FOR GFR 0.67 MG/DL (0.55-1.02); GLOMERULAR FILTRATION RATE > 60.0 (>39); GLUCOSE, FASTING 100 MG/DL (83-110); POTASSIUM SERUM 3.9 MEQ/L (3.5-5.1); SODIUM LEVEL 143 MEQ/L (136-145); TRIGLYCERIDES LEVEL 85 MG/DL (<150)
== END ==
LOC: M LABNEURO 08:16
DX: E78.5 Hyperlipidemia, unspecified (principal); E66.9 Obesity, unspecified

== ENCOUNTER → 2017-08-25 | Outpatient (REF) | payer MEDICARE, BC, OTHER ==
[2017-08-25 14:19] LABS: FREE T4 0.97 NG/DL (0.76-1.46)
== END ==
LOC: M LABNEURO 10:57
DX: E89.0 Postprocedural hypothyroidism (principal)
CPT/HCPCS: 84443

== ENCOUNTER → 2017-09-15 | Outpatient (REF) | payer MEDICARE ==
[2017-09-15 14:01] LABS: ALBUMIN 3.5 GM/DL (3.2-5.2); ALBUMIN/GLOBULIN RATIO 1.13 (1.00-1.93); ALKALINE PHOSPHATASE 83 U/L (45-117); ALT/SGPT 15 U/L (12-78); ANION GAP 6 MEQ/L (8-16); AST/SGOT 12 U/L (7-37); BILIRUBIN,TOTAL 0.9 MG/DL (0.2-1.0); BLOOD UREA NITROGEN 20 MG/DL (7-18); CALCIUM LEVEL 8.6 MG/DL (8.8-10.2); CARBON DIOXIDE LEVEL 26 MEQ/L (21-32); CHLORIDE LEVEL 110 MEQ/L (98-107); CHOLESTEROL LEVEL 162 MG/DL (<200); CHOLESTEROL RISK RATIO 2.189 (<5); CREATININE FOR GFR 0.75 MG/DL (0.55-1.30); GLOMERULAR FILTRATION RATE > 60.0 (>39); GLUCOSE, FASTING 98 MG/DL (70-100); HDL CHOLESTEROL 74 MG/DL (>40); LDL CHOLESTEROL 67.2 MG/DL (<100); NON-HDL-C 88 MG/DL; POTASSIUM SERUM 4.1 MEQ/L (3.5-5.1); SODIUM LEVEL 142 MEQ/L (136-145); TOTAL PROTEIN 6.6 GM/DL (6.4-8.2); TRIGLYCERIDES LEVEL 104 MG/DL (<150)
[2017-09-15 14:05] LABS: BASO % 0.4 % (0.0-1.0); EOS # 0.3 10^3/uL (0.0-0.50); EOS % 3.3 % (0.0-3.0); HEMATOCRIT 42.2 % (36.0-47.0); HEMOGLOBIN 13.6 g/dl (12.0-15.5); IMMATURE GRANULOCYTE % 0.3 % (0-3.0); LYMPH # 2.8 10^3/uL (1.5-4.5); LYMPH % 30.9 % (24.0-44.0); MEAN CORPUSCULAR HEMOGLOBIN 30.8 pg (27.0-33.0); MEAN CORPUSCULAR HGB CONC 32.2 g/dl (32.0-36.5); MEAN CORPUSCULAR VOLUME 95.7 fl (80.0-96.0); MONO # 0.8 10^3/uL (0.0-0.8); MONO % 8.5 % (0.0-5.0); NEUTROPHILS # 5.1 10^3/uL (1.8-7.7); NEUTROPHILS % 56.6 % (36.0-66.0); PLATELET COUNT, AUTOMATED 262 10^3/uL (150-450); RED BLOOD COUNT 4.41 10^6/uL (4.00-5.40); RED CELL DISTRIBUTION WIDTH 12.8 % (11.5-14.5); WHITE BLOOD COUNT 9.1 10^3/uL (4.0-10.0)
== END ==
LOC: M LABNEURO 08:49
DX: E78.5 Hyperlipidemia, unspecified (principal)
CPT/HCPCS: 80053

== ENCOUNTER → 2018-03-23 | Outpatient (CLI) | payer MEDICARE, BC, OTHER | LOC: M SLEEP 19:35 | DX: R40.0 Somnolence (principal); G47.33 Obstructive sleep apnea (adult) (pediatric) | CPT/HCPCS: 95810 ==

== ENCOUNTER → 2018-03-25 | Outpatient (REF) | payer MEDICARE, OTHER | LOC: M LABDRWAD 09:50 | DX: R30.0 Dysuria (principal) | CPT/HCPCS: 87186 ==

== ENCOUNTER → 2018-04-16 | Outpatient (CLI) | payer MEDICARE, BC, OTHER | LOC: M SLEEP 19:30 | DX: G47.33 Obstructive sleep apnea (adult) (pediatric) (principal) | CPT/HCPCS: 95811 ==

== ENCOUNTER → 2018-07-14 | Outpatient (REF) | payer MEDICARE, BC, OTHER ==
[~2018-07-14] MED LIST changes: +BENZ-18 PO; -BENZ100C5 PO; -LASI20TA PO; +LASI20TA3 PO
== END ==
LOC: M LAB REF 09:45
PROVIDERS: ATTEND Physician Assistant
DX: R30.0 Dysuria (principal)

== ENCOUNTER → 2018-09-02 | Outpatient (REF) | payer MEDICARE, OTHER ==
[~2018-09-02] MED LIST changes: -ASPI1TAB PO; +ASPI81TA26 PO
[2018-09-02 15:24] LABS: FREE T4 1.12 NG/DL (0.76-1.46); THYROID STIMULATING HORMONE 3.5 uIU/ML (0.358-3.740)
== END ==
LOC: M LABNEURO 11:02
PROVIDERS: ATTEND Internal Medicine Endocrinology, Diabetes & Metabolism
DX: E89.0 Postprocedural hypothyroidism (principal)

== ENCOUNTER → 2018-09-15 | Outpatient (REF) | payer MEDICARE, OTHER ==
[2018-09-15 13:26] LABS: APPEARANCE, URINE MANUAL CLOUDY (CLEAR); COLOR, URINE MANUAL YELLOW (YELLOW)
[2018-09-15 13:27] LABS: BILIRUBIN, URINE MANUAL NEGATIVE (NEGATIVE); BLOOD URINE MANUAL TRACE (NEGATIVE); GLUCOSE, URINE (UA) MANUAL NEGATIVE (NEGATIVE); KETONE, URINE MANUAL NEGATIVE (NEGATIVE); LEUKOCYTE ESTERASE, URINE MAN POSITIVE (NEGATIVE); NITRITE, URINE MANUAL NEGATIVE (NEGATIVE); PROTEIN, URINE MANUAL NEGATIVE (NEGATIVE); UROBILINOGEN, URINE MANUAL NORMAL (NORMAL)
[2018-09-15 13:34] LABS: HEMATOCRIT 41.1 % (36.0-47.0); HEMOGLOBIN 13.1 g/dl (12.0-15.5); MEAN CORPUSCULAR HEMOGLOBIN 30.3 pg (27.0-33.0); MEAN CORPUSCULAR HGB CONC 31.9 g/dl (32.0-36.5); MEAN CORPUSCULAR VOLUME 94.9 fl (80.0-96.0); PLATELET COUNT, AUTOMATED 262 10^3/uL (150-450); RED BLOOD COUNT 4.33 10^6/uL (4.00-5.40); WHITE BLOOD COUNT 7.9 10^3/uL (4.0-10.0)
[2018-09-15 13:35] LABS: BACTERIA, URINE SMALL AMOUNT; HYALINE CAST, URINE NONE SEEN /lpf (0-1); RBC, URINE 0-1 /hpf (0-3); SQUAMOUS EPITHELIAL CELL URINE NONE SEEN /hpf (SMALL AMT); WBC, URINE 0-1 /hpf (0-3)
[2018-09-15 14:03] LABS: ALBUMIN 3.4 GM/DL (3.2-5.2); ALT/SGPT 16 U/L (12-78); BILIRUBIN,TOTAL 0.7 MG/DL (0.2-1.0); BLOOD UREA NITROGEN 17 MG/DL (7-18); CALCIUM LEVEL 8.7 MG/DL (8.8-10.2); CARBON DIOXIDE LEVEL 25 MEQ/L (21-32); CHLORIDE LEVEL 109 MEQ/L (98-107); CHOLESTEROL LEVEL 152 MG/DL (<200); CHOLESTEROL RISK RATIO 2.082 (<5); CREATININE FOR GFR 0.74 MG/DL (0.55-1.30); GLOMERULAR FILTRATION RATE > 60.0 (>39); GLUCOSE, FASTING 102 MG/DL (70-100); HDL CHOLESTEROL 73 MG/DL (>40); LDL CHOLESTEROL 60 MG/DL (<100); NON-HDL-C 79 MG/DL; POTASSIUM SERUM 4.1 MEQ/L (3.5-5.1); SODIUM LEVEL 141 MEQ/L (136-145); TOTAL PROTEIN 6.3 GM/DL (6.4-8.2); TRIGLYCERIDES LEVEL 96 MG/DL (<150)
== END ==
LOC: M LABNEURO 09:00
PROVIDERS: ATTEND Nurse Practitioner
DX: E78.5 Hyperlipidemia, unspecified (principal); I10 Essential (primary) hypertension

== ENCOUNTER → 2019-06-10 | Outpatient (CLI) | payer MEDICARE, BC, OTHER ==
[~2019-06-10] MED LIST changes: +OMEP1CAP73 PO; -OMEP20CA3 PO; -OMEP40CA2 PO; +OMEP40CA97 PO; -SIMV10TA2 PO; +SIMV10TA21 PO; -SIMV40TA2 PO; +SIMV40TA20 PO
[2019-06-10 12:44] LABS: ALBUMIN 3.6 GM/DL (3.2-5.2); ALT/SGPT 19 U/L (12-78); BILIRUBIN,TOTAL 0.8 MG/DL (0.2-1.0); BLOOD UREA NITROGEN 16 MG/DL (7-18); CALCIUM LEVEL 9.1 MG/DL (8.8-10.2); CARBON DIOXIDE LEVEL 26 MEQ/L (21-32); CHLORIDE LEVEL 109 MEQ/L (98-107); CREATININE FOR GFR 0.71 MG/DL (0.55-1.30); FREE T4 1.03 NG/DL (0.76-1.46); GLOMERULAR FILTRATION RATE > 60.0 (>39); GLUCOSE, FASTING 87 MG/DL (70-100); POTASSIUM SERUM 4.4 MEQ/L (3.5-5.1); SODIUM LEVEL 142 MEQ/L (136-145); TOTAL PROTEIN 6.3 GM/DL (6.4-8.2)
[2019-06-10 12:46] LABS: TOTAL 25(OH) VITAMIN D 39.7 NG/ML (30.0-100.0)
== END ==
LOC: M LAB 10:09
PROVIDERS: ATTEND Physician Assistant
DX: E03.9 Hypothyroidism, unspecified (principal); R73.01 Impaired fasting glucose; Z79.899 Other long term (current) drug therapy

== ENCOUNTER → 2019-10-20 | Outpatient (CLI) | payer MEDICARE, BC, OTHER ==
[~2019-10-20] MED LIST changes: -CLOT1CRE TOP; +CLOT1CRE51 TOP
[2019-10-20 11:21] LABS: FREE T4 1.09 NG/DL (0.76-1.46); THYROID STIMULATING HORMONE 7.6 uIU/ML (0.358-3.740)
== END ==
LOC: M LAB 09:39
PROVIDERS: ATTEND Internal Medicine Endocrinology, Diabetes & Metabolism
DX: E89.0 Postprocedural hypothyroidism (principal)

== ENCOUNTER → 2019-10-20 | Outpatient (CLI) | payer MEDICARE, BC, OTHER ==
[2019-10-20 10:42] LABS: HEMATOCRIT 41.4 % (36.0-47.0); HEMOGLOBIN 13.4 g/dl (12.0-15.5); MEAN CORPUSCULAR HEMOGLOBIN 30.9 pg (27.0-33.0); MEAN CORPUSCULAR HGB CONC 32.4 g/dl (32.0-36.5); MEAN CORPUSCULAR VOLUME 95.6 fl (80.0-96.0); PLATELET COUNT, AUTOMATED 275 10^3/uL (150-450); RED BLOOD COUNT 4.33 10^6/uL (4.00-5.40); WHITE BLOOD COUNT 10.3 10^3/uL (4.0-10.0)
[2019-10-20 10:58] LABS: HEMOGLOBIN A1c 6.5 %
[2019-10-20 11:24] LABS: ALBUMIN 3.3 GM/DL (3.2-5.2); ALT/SGPT 17 U/L (12-78); BILIRUBIN,TOTAL 0.7 MG/DL (0.2-1.0); BLOOD UREA NITROGEN 14 MG/DL (7-18); CALCIUM LEVEL 8.6 MG/DL (8.8-10.2); CARBON DIOXIDE LEVEL 27 MEQ/L (21-32); CHLORIDE LEVEL 110 MEQ/L (98-107); CREATININE FOR GFR 0.72 MG/DL (0.55-1.30); FREE T4 1.09 NG/DL (0.76-1.46); GLOMERULAR FILTRATION RATE > 60.0 (>39); GLUCOSE, FASTING 98 MG/DL (70-100); POTASSIUM SERUM 4.3 MEQ/L (3.5-5.1); SODIUM LEVEL 144 MEQ/L (136-145); TOTAL PROTEIN 6.3 GM/DL (6.4-8.2)
[2019-10-20 11:59] LABS: ATYPICAL LYMPH 2 % (0-5); EOSINOPHILS 5 % (0-3); LYMPHOCYTES 34 % (16-44); MONOCYTES 4 % (0-5); NEUTROPHILS 55 % (28-66)
[2019-10-20 12:00] LABS: PLATELET ESTIMATE NORMAL (NORMAL); SMUDGE CELLS 1+
== END ==
LOC: M LAB 09:34
PROVIDERS: ATTEND Family Medicine
DX: E03.9 Hypothyroidism, unspecified (principal); R73.03 Prediabetes

== ENCOUNTER → 2020-04-12 | Outpatient (CLI) | payer MEDICARE, BC, OTHER ==
[2020-04-12 10:58] LABS: BASO # 0.1 10^3/uL (0.0-0.2); BASO % 0.5 % (0.0-1.0); EOS # 0.4 10^3/uL (0.0-0.5); EOS % 3.3 % (0.0-3.0); HEMOGLOBIN 14.1 g/dl (12.0-15.5); LYMPH # 5.1 10^3/uL (1.5-5.0); LYMPH % 39.9 % (24.0-44.0); MEAN CORPUSCULAR HEMOGLOBIN 30.7 pg (27.0-33.0); MEAN CORPUSCULAR VOLUME 95.9 fl (80.0-96.0); MONO # 1.1 10^3/uL (0.0-0.8); MONO % 8.4 % (0.0-5.0); NEUTROPHILS # 6.1 10^3/uL (1.5-8.5); NEUTROPHILS % 47.7 % (36.0-66.0); PLATELET COUNT, AUTOMATED 295 10^3/uL (150-450); RED BLOOD COUNT 4.59 10^6/uL (4.00-5.40)
[2020-04-12 11:13] LABS: WHITE BLOOD COUNT 12.8 10^3/uL (4.0-10.0)
[2020-04-12 11:36] LABS: ALBUMIN 3.5 GM/DL (3.2-5.2); ALT/SGPT 18 U/L (12-78); BLOOD UREA NITROGEN 17 MG/DL (7-18); CALCIUM LEVEL 9.3 MG/DL (8.8-10.2); CARBON DIOXIDE LEVEL 27 MEQ/L (21-32); CHLORIDE LEVEL 108 MEQ/L (98-107); CREATININE FOR GFR 0.74 MG/DL (0.55-1.30); GLOMERULAR FILTRATION RATE > 60.0 (>39); GLUCOSE, FASTING 106 MG/DL (70-100); POTASSIUM SERUM 4.5 MEQ/L (3.5-5.1); SODIUM LEVEL 140 MEQ/L (136-145); TOTAL PROTEIN 6.4 GM/DL (6.4-8.2)
[2020-04-12 13:21] LABS: HEMOGLOBIN A1c 5.8 %
[2020-04-12 13:43] LABS: MALB URINE SIEMENS 8.2 MG/L; MAU/CREAT RATIO 6.4 MCG/MG (0.0-30.0)
== END ==
LOC: M LAB 10:14
PROVIDERS: ATTEND Physician Assistant
DX: R73.01 Impaired fasting glucose (principal); E03.9 Hypothyroidism, unspecified

== ENCOUNTER → 2020-04-19 | Outpatient (REF) | payer MEDICARE, OTHER | LOC: M LAB REF 16:42 | PROVIDERS: ATTEND Physician Assistant | DX: N39.0 Urinary tract infection, site not specified (principal) ==

== ENCOUNTER → 2020-09-05 | Outpatient (REF) | payer MEDICARE, OTHER ==
[~2020-09-05] MED LIST changes: +DRON400T PO; -DRON40TA PO
== END ==
LOC: M SFHCWAGY 11:11
PROVIDERS: ATTEND Nurse Practitioner Women's Health
DX: Z08 Encounter for follow-up examination after completed treatment for malignant neoplasm (principal); Z12.4 Encounter for screening for malignant neoplasm of cervix; Z77.9 Other contact with and (suspected) exposures hazardous to health; N95.2 Postmenopausal atrophic vaginitis

== ENCOUNTER → 2020-09-05 | Outpatient (CLI) | payer MEDICARE, OTHER ==
--- NOTE | 2020-09-08 11:19 | REPMRS ---
Patient History The patient states she had a clinical breast exam on 09/05/2020. Patient is postmenopausal and has history of endometrial cancer at age 69. No known family history of cancer. No Hormone Replacement Therapy Patient states no breast complaints today. Patient has signed MRS History Sheet. Digital Woman Screen Mammo: September 05, 2020 - Exam #: [id number] Bilateral CC and MLO view(s) were taken. Technologist: Cora Carter [employer] Supervisor FINDINGS: There are scattered fibroglandular densities. Screening. Digital screening (2D) mammography was performed bilaterally in the CC and MLO projections. Additionally, breast tomosynthesis (3D mammography) was performed bilaterally in the CC and MLO projections. Todays exam was compared to the prior exams(s). By history, the patient has no complaints of a palpable breast abnormality or other significant breast complaints. The breasts are unchanged in size and shape. There are no jamin-soft tissue densities or spiculated masses. There is no internal architectural distortion.Once again, stable benign appearing calcifications are seen. There are no suspicious jamin-calcific clusters. Skin thickening or nipple retraction is not present. IMPRESSION: BI-RADS Category 2- Benign Findings(s). There is no evidence of malignant alteration of the breasts. Followup examination recommended in one year. The Volpara volumetric breast density category is B, there are scattered areas of fibroglandular density. This mammogram was read with the assistance of [employer],an FDA approved computer aided detection system for mammography. The lifetime Tyrer-Cuzick score is 4.0 % Negative x-ray reports should not delay surgical consultation if a dominant or clinically suspicious mass is present. Not all breast cancers can be identified by mammography. Therefore, we recommend that you continue to perform regular breast self-examination and physical examination and then promptly contact your physician of any concerns or changes. Adenosis and dense breasts may obscure an underlying neoplasm. Assessment: BI-RADS/ACR category 2 mammogram. Benign Findings. Recommendation Routine screening mammogram of both breasts in 1 year. Electronically Signed By: Dominic Mayen DO 09/08/20 1530
== END ==
LOC: M WHC 08:18
PROVIDERS: ATTEND Nurse Practitioner Women's Health
DX: Z01.419 Encounter for gynecological examination (general) (routine) without abnormal findings (principal); Z12.31 Encounter for screening mammogram for malignant neoplasm of breast; Z78.0 Asymptomatic menopausal state; Z85.44 Personal history of malignant neoplasm of other female genital organs; R92.1 Mammographic calcification found on diagnostic imaging of breast
CPT/HCPCS: 77063; 77067; 87624; G0101; G0123

== ENCOUNTER → 2020-11-14 | Outpatient (CLI) | payer MEDICARE, BC, OTHER ==
[~2020-11-14] MED LIST changes: +OMEP40CA4 PO; -OMEP40CA97 PO
[2020-11-14 15:35] LABS: BASO % 0.4 % (0.0-1.0); EOS # 0.4 10^3/uL (0.0-0.5); EOS % 4.1 % (0.0-3.0); HEMATOCRIT 43.8 % (36.0-47.0); HEMOGLOBIN 13.9 g/dl (12.0-15.5); LYMPH # 4.9 10^3/uL (1.5-5.0); LYMPH % 45.8 % (24.0-44.0); MEAN CORPUSCULAR HEMOGLOBIN 30.4 pg (27.0-33.0); MEAN CORPUSCULAR HGB CONC 31.7 g/dl (32.0-36.5); MEAN CORPUSCULAR VOLUME 95.8 fl (80.0-96.0); MONO # 0.8 10^3/uL (0.0-0.8); MONO % 7.9 % (2.0-8.0); NEUTROPHILS # 4.4 10^3/uL (1.5-8.5); NEUTROPHILS % 41.4 % (36.0-66.0); PLATELET COUNT, AUTOMATED 268 10^3/uL (150-450); RED BLOOD COUNT 4.57 10^6/uL (4.00-5.40); WHITE BLOOD COUNT 10.7 10^3/uL (4.0-10.0)
[2020-11-14 16:05] LABS: ALBUMIN 3.4 GM/DL (3.2-5.2); ALT/SGPT 21 U/L (12-78); BILIRUBIN,TOTAL 1.1 MG/DL (0.2-1.0); BLOOD UREA NITROGEN 11 MG/DL (7-18); CALCIUM LEVEL 9.2 MG/DL (8.8-10.2); CARBON DIOXIDE LEVEL 28 MEQ/L (21-32); CHLORIDE LEVEL 110 MEQ/L (98-107); CHOLESTEROL LEVEL 169 MG/DL (<200); CHOLESTEROL RISK RATIO 1.965 (<5); CREATININE FOR GFR 0.68 MG/DL (0.55-1.30); FREE T4 1.42 NG/DL (0.76-1.46); GLOMERULAR FILTRATION RATE > 60.0 (>39); GLUCOSE, FASTING 91 MG/DL (70-100); HDL CHOLESTEROL 86 MG/DL (>40); LDL CHOLESTEROL 63 MG/DL (<100); NON-HDL-C 83 MG/DL; POTASSIUM SERUM 4.4 MEQ/L (3.5-5.1); SODIUM LEVEL 144 MEQ/L (136-145); TOTAL PROTEIN 6.4 GM/DL (6.4-8.2); TRIGLYCERIDES LEVEL 102 MG/DL (<150)
[2020-11-14 16:34] LABS: HEMOGLOBIN A1c 5.9 %
== END ==
LOC: M PLALAB 13:16
PROVIDERS: ATTEND Family Medicine
DX: E78.5 Hyperlipidemia, unspecified (principal); E03.9 Hypothyroidism, unspecified; K21.9 Gastro-esophageal reflux disease without esophagitis; R73.01 Impaired fasting glucose

== ENCOUNTER → 2021-05-08 | Outpatient (CLI) | payer MEDICARE, BC, OTHER ==
[2021-05-08 16:08] LABS: HEMATOCRIT 46.1 % (36.0-47.0); HEMOGLOBIN 14.6 g/dl (12.0-15.5); MEAN CORPUSCULAR HGB CONC 31.7 g/dl (32.0-36.5); MEAN CORPUSCULAR VOLUME 94.9 fl (80.0-96.0); PLATELET COUNT, AUTOMATED 283 10^3/uL (150-450); RED BLOOD COUNT 4.86 10^6/uL (4.00-5.40); WHITE BLOOD COUNT 13.2 10^3/uL (4.0-10.0)
[2021-05-08 16:45] LABS: ALBUMIN 3.5 GM/DL (3.2-5.2); ALT/SGPT 22 U/L (12-78); BLOOD UREA NITROGEN 15 MG/DL (7-18); CALCIUM LEVEL 9.3 MG/DL (8.8-10.2); CARBON DIOXIDE LEVEL 27 MEQ/L (21-32); CHLORIDE LEVEL 108 MEQ/L (98-107); CREATININE FOR GFR 0.74 MG/DL (0.55-1.30); FREE T4 1.35 NG/DL (0.76-1.46); GLOMERULAR FILTRATION RATE > 60.0 (>39); GLUCOSE, FASTING 88 MG/DL (70-100); POTASSIUM SERUM 4.8 MEQ/L (3.5-5.1); SODIUM LEVEL 142 MEQ/L (136-145); TOTAL PROTEIN 6.5 GM/DL (6.4-8.2)
[2021-05-08 17:25] LABS: TOTAL 25(OH) VITAMIN D 50.1 NG/ML (30.0-100.0)
[2021-05-08 18:18] LABS: ATYPICAL LYMPH 3 % (0-5); EOSINOPHILS 4 % (0-3); LYMPHOCYTES 43 % (16-44); MONOCYTES 7 % (0-5); NEUTROPHILS 43 % (28-66)
[2021-05-08 18:19] LABS: PLATELET CLUMPS SMALL AMT; PLATELET ESTIMATE NORMAL (NORMAL)
== END ==
LOC: M PLALAB 13:38
PROVIDERS: ATTEND Physician Assistant
DX: E03.9 Hypothyroidism, unspecified (principal); Z79.899 Other long term (current) drug therapy

== ENCOUNTER → 2021-08-07 | Outpatient (CLI) | payer MEDICARE, BC, OTHER ==
[2021-08-07 13:24] LABS: HEMATOCRIT 44.2 % (36.0-47.0); HEMOGLOBIN 14.3 g/dl (12.0-15.5); MEAN CORPUSCULAR HEMOGLOBIN 30.8 pg (27.0-33.0); MEAN CORPUSCULAR HGB CONC 32.4 g/dl (32.0-36.5); MEAN CORPUSCULAR VOLUME 95.3 fl (80.0-96.0); PLATELET COUNT, AUTOMATED 272 10^3/uL (150-450); RED BLOOD COUNT 4.64 10^6/uL (4.00-5.40); WHITE BLOOD COUNT 13.1 10^3/uL (4.0-10.0)
[2021-08-07 14:22] LABS: ALBUMIN 3.5 GM/DL (3.2-5.2); ALT/SGPT 21 U/L (12-78); BLOOD UREA NITROGEN 16 MG/DL (7-18); CALCIUM LEVEL 9.6 MG/DL (8.8-10.2); CARBON DIOXIDE LEVEL 29 MEQ/L (21-32); CHLORIDE LEVEL 109 MEQ/L (98-107); CHOLESTEROL LEVEL 173 MG/DL (<200); CHOLESTEROL RISK RATIO 2.084 (<5); CREATININE FOR GFR 0.74 MG/DL (0.55-1.30); FREE T4 1.44 NG/DL (0.76-1.46); GLOMERULAR FILTRATION RATE > 60.0 (>39); GLUCOSE, FASTING 86 MG/DL (70-100); HDL CHOLESTEROL 83 MG/DL (>40); LDL CHOLESTEROL 68 MG/DL (<100); NON-HDL-C 90 MG/DL; POTASSIUM SERUM 4.7 MEQ/L (3.5-5.1); SODIUM LEVEL 142 MEQ/L (136-145); TOTAL PROTEIN 6.1 GM/DL (6.4-8.2); TRIGLYCERIDES LEVEL 109 MG/DL (<150)
[2021-08-07 14:23] LABS: ATYPICAL LYMPH 19 % (0-5); EOSINOPHILS 7 % (0-3); LYMPHOCYTES 34 % (16-44); MONOCYTES 3 % (0-5); NEUTROPHILS 37 % (28-66); PLATELET ESTIMATE NORMAL (NORMAL)
== END ==
LOC: M PLALAB 09:19
PROVIDERS: ATTEND Family Medicine
DX: E78.5 Hyperlipidemia, unspecified (principal); E03.9 Hypothyroidism, unspecified

== ENCOUNTER → 2021-08-22 | Outpatient (CLI) | payer MEDICARE, BC, OTHER ==
[2021-08-22 17:00] LABS: HEMATOCRIT 44.8 % (36.0-47.0); HEMOGLOBIN 14.4 g/dl (12.0-15.5); MEAN CORPUSCULAR HEMOGLOBIN 30.8 pg (27.0-33.0); MEAN CORPUSCULAR HGB CONC 32.1 g/dl (32.0-36.5); MEAN CORPUSCULAR VOLUME 95.7 fl (80.0-96.0); PLATELET COUNT, AUTOMATED 310 10^3/uL (150-450); RED BLOOD COUNT 4.68 10^6/uL (4.00-5.40); WHITE BLOOD COUNT 15.5 10^3/uL (4.0-10.0)
[2021-08-22 17:26] LABS: LDH LACTATE DEHYDROGENASE 193 U/L (84-246)
[2021-08-22 17:27] LABS: MONO REFLEX EBV COMP NEGATIVE (NEGATIVE)
[2021-08-22 17:32] LABS: ATYPICAL LYMPH 2 % (0-5); EOSINOPHILS 3 % (0-3); LYMPHOCYTES 52 % (16-44); MONOCYTES 5 % (0-5); NEUTROPHILS 38 % (28-66); PLATELET ESTIMATE NORMAL (NORMAL)
[2021-08-24 14:11] LABS: EBV AB TO NUCLEAR ANTIGEN <18.0 U/mL (0.0-17.9); EBV VIRAL CAPSID AG IgG >600.0 U/mL (0.0-17.9); EBV VIRAL CAPSID AG IgM <36.0 U/mL (0.0-35.9)
== END ==
LOC: M PLALAB 14:35
PROVIDERS: ATTEND Physician Assistant
DX: D72.829 Elevated white blood cell count, unspecified (principal)

== ENCOUNTER → 2021-09-27 | Outpatient (CLI) | payer MEDICARE, BC, OTHER ==
[~2021-09-27] MED LIST changes: +CLAR10CA3 PO; +HYDR12.55 PO; +MECL-136 PO; +MELA5CAP2 PO
== END ==
LOC: M WHC 13:53
PROVIDERS: ATTEND Physician Assistant
DX: Z12.31 Encounter for screening mammogram for malignant neoplasm of breast (principal); Z13.820 Encounter for screening for osteoporosis; M85.851 Other specified disorders of bone density and structure, right thigh; M85.852 Other specified disorders of bone density and structure, left thigh

== ENCOUNTER → 2021-11-13 | Outpatient (CLI) | payer MEDICARE, BC, OTHER ==
[2021-11-13 10:46] LABS: HEMATOCRIT 43.8 % (36.0-47.0); HEMOGLOBIN 13.9 g/dl (12.0-15.5); MEAN CORPUSCULAR HEMOGLOBIN 30.3 pg (27.0-33.0); MEAN CORPUSCULAR HGB CONC 31.7 g/dl (32.0-36.5); MEAN CORPUSCULAR VOLUME 95.4 fl (80.0-96.0); PLATELET COUNT, AUTOMATED 257 10^3/uL (150-450); RED BLOOD COUNT 4.59 10^6/uL (4.00-5.40); WHITE BLOOD COUNT 11.2 10^3/uL (4.0-10.0)
[2021-11-13 11:25] LABS: BASOPHILS 1 % (0-1); EOSINOPHILS 2 % (0-3); LYMPHOCYTES 43 % (16-44); MONOCYTES 2 % (0-5); NEUTROPHILS 52 % (28-66); PLATELET ESTIMATE NORMAL (NORMAL)
[2021-11-13 11:57] LABS: ALBUMIN 3.2 GM/DL (3.2-5.2); ALT/SGPT 17 U/L (12-78); BILIRUBIN,TOTAL 1.2 MG/DL (0.2-1.0); BLOOD UREA NITROGEN 13 MG/DL (7-18); CALCIUM LEVEL 8.9 MG/DL (8.8-10.2); CARBON DIOXIDE LEVEL 28 MEQ/L (21-32); CHLORIDE LEVEL 109 MEQ/L (98-107); CREATININE FOR GFR 0.72 MG/DL (0.55-1.30); FREE T4 1.45 NG/DL (0.76-1.46); GLOMERULAR FILTRATION RATE > 60.0 (>39); GLUCOSE, FASTING 100 MG/DL (70-100); SODIUM LEVEL 140 MEQ/L (136-145); TOTAL PROTEIN 5.9 GM/DL (6.4-8.2)
== END ==
LOC: M PLALAB 08:37
PROVIDERS: ATTEND Physician Assistant
DX: D72.829 Elevated white blood cell count, unspecified (principal); Z79.899 Other long term (current) drug therapy

== ENCOUNTER → 2022-02-07 | Outpatient (CLI) | payer MEDICARE, BC, OTHER | LOC: M PLALAB 11:03 | PROVIDERS: ATTEND Family Medicine | DX: D72.829 Elevated white blood cell count, unspecified (principal) ==

== ENCOUNTER → 2022-02-22 | Outpatient (CLI) | payer MEDICARE, BC, OTHER ==
[2022-02-22 17:18] LABS: ALBUMIN 3.4 GM/DL (3.2-5.2); ALT/SGPT 19 U/L (12-78); BILIRUBIN,TOTAL 0.9 MG/DL (0.2-1.0); BLOOD UREA NITROGEN 12 MG/DL (7-18); CALCIUM LEVEL 9.3 MG/DL (8.8-10.2); CARBON DIOXIDE LEVEL 24 MEQ/L (21-32); CHLORIDE LEVEL 110 MEQ/L (98-107); CHOLESTEROL LEVEL 176 MG/DL (<200); CHOLESTEROL RISK RATIO 2.022 (<5); FREE T4 1.26 NG/DL (0.76-1.46); GLOMERULAR FILTRATION RATE > 60.0 (>39); GLUCOSE, FASTING 100 MG/DL (70-100); HDL CHOLESTEROL 87 MG/DL (>40); LDL CHOLESTEROL 73 MG/DL (<100); NON-HDL-C 89 MG/DL; POTASSIUM SERUM 5.3 MEQ/L (3.5-5.1); SODIUM LEVEL 139 MEQ/L (136-145); TOTAL PROTEIN 6.4 GM/DL (6.4-8.2); TRIGLYCERIDES LEVEL 81 MG/DL (<150)
[2022-02-25 16:10] LABS: RUBEOLA IgG ANTIBODY >300.0 AU/mL (Immune >16.4)
== END ==
LOC: M PLALAB 13:08
PROVIDERS: ATTEND Physician Assistant
DX: Z01.84 Encounter for antibody response examination (principal); E03.9 Hypothyroidism, unspecified; Z12.11 Encounter for screening for malignant neoplasm of colon

== ENCOUNTER → 2022-03-18 | Outpatient (CLI) | payer MEDICARE, BC, OTHER ==
[~2022-03-18] MED LIST changes: +GASTROGRAFIN SOLUTION 30ML As Ordered ONE; +ISOVUE-370 76% 100ML VIAL As Ordered ONE
== END ==
LOC: M RAD 09:07
PROVIDERS: ATTEND Internal Medicine
DX: C91.10 Chronic lymphocytic leukemia of B-cell type not having achieved remission (principal); M50.90 Cervical disc disorder, unspecified, unspecified cervical region
CPT/HCPCS: 70491; 71260; 74177; Q9963; Q9967

== ENCOUNTER → 2022-09-11 | Outpatient (CLI) | payer MEDICARE, BC, OTHER ==
[~2022-09-11] MED LIST changes: -GASTROGRAFIN SOLUTION 30ML As Ordered ONE; -ISOVUE-370 76% 100ML VIAL As Ordered ONE
[2022-09-11 10:52] LABS: ALBUMIN 3.5 G/DL (3.2-5.2); ALKALINE PHOSPHATASE 70 U/L (46-116); ALT/SGPT 17 U/L (7.0-40); AST/SGOT 16 U/L (<34); BLOOD UREA NITROGEN 17 MG/DL (9-23); CALCIUM LEVEL 9.5 MG/DL (8.3-10.6); CARBON DIOXIDE LEVEL 30 MMOL/L (20-31); CHLORIDE LEVEL 110 MMOL/L (98-107); CHOLESTEROL LEVEL 172 MG/DL (<200); CHOLESTEROL RISK RATIO 2.22 (<5); CREATININE FOR GFR 0.74 MG/DL (0.55-1.30); GLOMERULAR FILTRATION RATE > 60.0 (>39); GLUCOSE, FASTING 107 MG/DL (74-106); HDL CHOLESTEROL 77.2 MG/DL (>40); LDL CHOLESTEROL 73.4 MG/DL (<100); NON-HDL-C 94.8 MG/DL; POTASSIUM SERUM 4.4 MMOL/L (3.5-5.1); SODIUM LEVEL 141 MMOL/L (136-145); TOTAL PROTEIN 6.1 G/DL (5.7-8.2); TRIGLYCERIDES LEVEL 107 MG/DL (<150)
[2022-09-11 10:54] LABS: FREE T4 1.38 NG/DL (0.89-1.76); THYROID STIMULATING HORMONE 2.732 uIU/ML (0.55-4.78)
[2022-09-11 10:56] LABS: BASO # 0.1 10^3/uL (0.0-0.2); BASO % 0.6 % (0.0-1.0); EOS # 0.6 10^3/uL (0.0-0.5); EOS % 4.7 % (0.0-3.0); HEMATOCRIT 44.6 % (36.0-47.0); HEMOGLOBIN 14.2 g/dl (12.0-15.5); LYMPH # 6.6 10^3/uL (1.5-5.0); LYMPH % 53.1 % (24.0-44.0); MEAN CORPUSCULAR HEMOGLOBIN 30.8 pg (27.0-33.0); MEAN CORPUSCULAR HGB CONC 31.8 g/dl (32.0-36.5); MEAN CORPUSCULAR VOLUME 96.7 fl (80.0-96.0); MONO # 0.9 10^3/uL (0.0-0.8); MONO % 7.1 % (2.0-8.0); NEUTROPHILS # 4.2 10^3/uL (1.5-8.5); NEUTROPHILS % 34.2 % (36.0-66.0); PLATELET COUNT, AUTOMATED 278 10^3/uL (150-450); RED BLOOD COUNT 4.61 10^6/uL (4.00-5.40); WHITE BLOOD COUNT 12.3 10^3/uL (4.0-10.0)
== END ==
LOC: M PLALAB 08:05
PROVIDERS: ATTEND Family Medicine
DX: E78.5 Hyperlipidemia, unspecified (principal)

== ENCOUNTER → 2022-10-08 | Outpatient (CLI) | payer MEDICARE, BC, OTHER ==
[2022-10-08 11:01] LABS: ALBUMIN 3.4 G/DL (3.2-5.2); ALKALINE PHOSPHATASE 73 U/L (46-116); ALT/SGPT 15 U/L (7.0-40); AST/SGOT 12 U/L (<34); BILIRUBIN,TOTAL 1.2 MG/DL (0.3-1.2); BLOOD UREA NITROGEN 15 MG/DL (9-23); CALCIUM LEVEL 9.5 MG/DL (8.3-10.6); CARBON DIOXIDE LEVEL 28 MMOL/L (20-31); CHLORIDE LEVEL 107 MMOL/L (98-107); CREATININE FOR GFR 0.82 MG/DL (0.55-1.30); GLOMERULAR FILTRATION RATE > 60.0 (>39); GLUCOSE, FASTING 101 MG/DL (74-106); POTASSIUM SERUM 4.2 MMOL/L (3.5-5.1); SODIUM LEVEL 142 MMOL/L (136-145); TOTAL PROTEIN 5.9 G/DL (5.7-8.2)
[2022-10-08 11:07] LABS: BASO # 0.1 10^3/uL (0.0-0.2); BASO % 0.6 % (0.0-1.0); EOS # 0.4 10^3/uL (0.0-0.5); EOS % 3.8 % (0.0-3.0); HEMATOCRIT 44.2 % (36.0-47.0); LYMPH # 5.8 10^3/uL (1.5-5.0); LYMPH % 49.6 % (24.0-44.0); MEAN CORPUSCULAR HEMOGLOBIN 30.2 pg (27.0-33.0); MEAN CORPUSCULAR HGB CONC 31.7 g/dl (32.0-36.5); MEAN CORPUSCULAR VOLUME 95.5 fl (80.0-96.0); MONO % 8.7 % (2.0-8.0); NEUTROPHILS # 4.3 10^3/uL (1.5-8.5); PLATELET COUNT, AUTOMATED 261 10^3/uL (150-450); RED BLOOD COUNT 4.63 10^6/uL (4.00-5.40); WHITE BLOOD COUNT 11.7 10^3/uL (4.0-10.0)
== END ==
LOC: M PLALAB 08:24
PROVIDERS: ATTEND Nurse Practitioner
DX: C91.10 Chronic lymphocytic leukemia of B-cell type not having achieved remission (principal)

== ENCOUNTER → 2022-11-15 | Outpatient (CLI) | payer MEDICARE, BC, OTHER | LOC: M WHC 08:55 | PROVIDERS: ATTEND Family Medicine | DX: Z12.31 Encounter for screening mammogram for malignant neoplasm of breast (principal) ==

== ENCOUNTER → 2023-04-07 | Outpatient (CLI) | payer MEDICARE, BC, OTHER ==
[2023-04-07 11:16] LABS: BASO # 0.1 10^3/uL (0.0-0.2); BASO % 0.4 % (0.0-1.0); EOS # 0.6 10^3/uL (0.0-0.5); EOS % 4.6 % (0.0-3.0); HEMATOCRIT 43.3 % (36.0-47.0); HEMOGLOBIN 13.8 g/dl (12.0-15.5); LYMPH % 48.9 % (24.0-44.0); MEAN CORPUSCULAR HEMOGLOBIN 30.5 pg (27.0-33.0); MEAN CORPUSCULAR HGB CONC 31.9 g/dl (32.0-36.5); MEAN CORPUSCULAR VOLUME 95.8 fl (80.0-96.0); MONO # 0.9 10^3/uL (0.0-0.8); MONO % 7.2 % (2.0-8.0); NEUTROPHILS # 4.7 10^3/uL (1.5-8.5); NEUTROPHILS % 38.7 % (36.0-66.0); PLATELET COUNT, AUTOMATED 275 10^3/uL (150-450); RED BLOOD COUNT 4.52 10^6/uL (4.00-5.40); WHITE BLOOD COUNT 12.2 10^3/uL (4.0-10.0)
[2023-04-07 12:04] LABS: LDH LACTATE DEHYDROGENASE 194 U/L (120-246)
[2023-04-07 12:05] LABS: ALBUMIN 3.1 G/DL (3.2-5.2); ALKALINE PHOSPHATASE 69 U/L (46-116); ALT/SGPT 11 U/L (7.0-40); AST/SGOT 15 U/L (<34); BILIRUBIN,TOTAL 0.9 MG/DL (0.3-1.2); BLOOD UREA NITROGEN 15 MG/DL (9-23); CALCIUM LEVEL 8.9 MG/DL (8.3-10.6); CARBON DIOXIDE LEVEL 28 MMOL/L (20-31); CHLORIDE LEVEL 106 MMOL/L (98-107); CREATININE FOR GFR 0.71 MG/DL (0.55-1.30); GLOMERULAR FILTRATION RATE > 60.0 (>39); GLUCOSE, FASTING 110 MG/DL (74-106); POTASSIUM SERUM 4.1 MMOL/L (3.5-5.1); SODIUM LEVEL 143 MMOL/L (136-145); TOTAL PROTEIN 5.8 G/DL (5.7-8.2)
== END ==
LOC: M PLALAB 08:25
PROVIDERS: ATTEND Nurse Practitioner
DX: C91.10 Chronic lymphocytic leukemia of B-cell type not having achieved remission (principal)

== ENCOUNTER → 2023-04-08 | Outpatient (CLI) | payer MEDICARE, BC, OTHER ==
[2023-04-08 12:46] LABS: BASO # 0.1 10^3/uL (0.0-0.2); BASO % 0.5 % (0.0-1.0); EOS # 0.6 10^3/uL (0.0-0.5); EOS % 5.1 % (0.0-3.0); HEMATOCRIT 42.6 % (36.0-47.0); HEMOGLOBIN 13.5 g/dl (12.0-15.5); LYMPH % 52.6 % (24.0-44.0); MEAN CORPUSCULAR HEMOGLOBIN 30.6 pg (27.0-33.0); MEAN CORPUSCULAR HGB CONC 31.7 g/dl (32.0-36.5); MEAN CORPUSCULAR VOLUME 96.6 fl (80.0-96.0); MONO # 0.9 10^3/uL (0.0-0.8); MONO % 8.1 % (2.0-8.0); NEUTROPHILS # 3.8 10^3/uL (1.5-8.5); NEUTROPHILS % 33.5 % (36.0-66.0); PLATELET COUNT, AUTOMATED 272 10^3/uL (150-450); RED BLOOD COUNT 4.41 10^6/uL (4.00-5.40); WHITE BLOOD COUNT 11.5 10^3/uL (4.0-10.0)
[2023-04-08 13:18] LABS: THYROID STIMULATING HORMONE 5.818 uIU/ML (0.55-4.78)
[2023-04-08 13:19] LABS: FREE T4 1.29 NG/DL (0.89-1.76)
[2023-04-08 13:20] LABS: ALBUMIN 3.1 G/DL (3.2-5.2); ALKALINE PHOSPHATASE 70 U/L (46-116); ALT/SGPT 14 U/L (7.0-40); AST/SGOT 16 U/L (<34); BILIRUBIN,TOTAL 0.8 MG/DL (0.3-1.2); BLOOD UREA NITROGEN 17 MG/DL (9-23); CARBON DIOXIDE LEVEL 28 MMOL/L (20-31); CHLORIDE LEVEL 109 MMOL/L (98-107); CHOLESTEROL LEVEL 178 MG/DL (<200); CHOLESTEROL RISK RATIO 2.36 (<5); CREATININE FOR GFR 0.72 MG/DL (0.55-1.30); GLOMERULAR FILTRATION RATE > 60.0 (>39); GLUCOSE, FASTING 103 MG/DL (74-106); HDL CHOLESTEROL 75.2 MG/DL (>40); LDL CHOLESTEROL 82.6 MG/DL (<100); NON-HDL-C 102.8 MG/DL; POTASSIUM SERUM 4.4 MMOL/L (3.5-5.1); SODIUM LEVEL 144 MMOL/L (136-145); TOTAL PROTEIN 5.7 G/DL (5.7-8.2); TRIGLYCERIDES LEVEL 101 MG/DL (<150)
== END ==
LOC: M PLALAB 08:18
PROVIDERS: ATTEND Family Medicine
DX: E78.5 Hyperlipidemia, unspecified (principal)

== ENCOUNTER → 2023-10-01 | Outpatient (CLI) | payer MEDICARE, BC, OTHER ==
[2023-10-01 13:42] LABS: HEMATOCRIT 43.8 % (36.0-47.0); HEMOGLOBIN 14.1 g/dl (12.0-15.5); MEAN CORPUSCULAR HEMOGLOBIN 31.1 pg (27.0-33.0); MEAN CORPUSCULAR HGB CONC 32.2 g/dl (32.0-36.5); MEAN CORPUSCULAR VOLUME 96.7 fl (80.0-96.0); PLATELET COUNT, AUTOMATED 251 10^3/uL (150-450); RED BLOOD COUNT 4.53 10^6/uL (4.00-5.40); WHITE BLOOD COUNT 10.7 10^3/uL (4.0-10.0)
[2023-10-01 13:46] LABS: HEMOGLOBIN A1c 5.8 % (4.0-6.0)
[2023-10-01 14:06] LABS: ALBUMIN 3.1 G/DL (3.2-5.2); ALKALINE PHOSPHATASE 74 U/L (46-116); ALT/SGPT 14 U/L (7.0-40); AST/SGOT 13 U/L (<34); BILIRUBIN,TOTAL 1.2 MG/DL (0.3-1.2); BLOOD UREA NITROGEN 17 MG/DL (9-23); CALCIUM LEVEL 9.1 MG/DL (8.3-10.6); CARBON DIOXIDE LEVEL 28 MMOL/L (20-31); CHLORIDE LEVEL 110 MMOL/L (98-107); CHOLESTEROL LEVEL 161 MG/DL (<200); CREATININE FOR GFR 0.77 MG/DL (0.55-1.30); GLOMERULAR FILTRATION RATE > 60.0 (>39); GLUCOSE, FASTING 94 MG/DL (74-106); HDL CHOLESTEROL 69.8 MG/DL (>40); LDL CHOLESTEROL 68.6 MG/DL (<100); NON-HDL-C 91.2 MG/DL; POTASSIUM SERUM 4.9 MMOL/L (3.5-5.1); SODIUM LEVEL 144 MMOL/L (136-145); TOTAL PROTEIN 5.7 G/DL (5.7-8.2); TRIGLYCERIDES LEVEL 113 MG/DL (<150)
[2023-10-01 14:07] LABS: FREE T4 1.43 NG/DL (0.89-1.76)
[2023-10-01 14:23] LABS: ATYPICAL LYMPH 15 % (0-5); EOSINOPHILS 5 % (0-3); LYMPHOCYTES 29 % (16-44); MONOCYTES 8 % (0-5); NEUTROPHILS 43 % (28-66); SMUDGE CELLS 3+
[2023-10-01 14:25] LABS: GIANT PLATELETS 1+; PLATELET ESTIMATE NORMAL (NORMAL)
== END ==
LOC: M PLALAB 08:54
PROVIDERS: ATTEND Physician Assistant
DX: E78.5 Hyperlipidemia, unspecified (principal); E03.9 Hypothyroidism, unspecified; G47.33 Obstructive sleep apnea (adult) (pediatric); Z79.899 Other long term (current) drug therapy

== ENCOUNTER → 2023-10-14 | Outpatient (CLI) | payer MEDICARE, BC ==
[~2023-10-14] MED LIST changes: +D3 M1CAP2 PO; +DICL20GE TP; +HYDR12CA PO; +IBUP200C25 PO; +SYNT100T PO
[2023-10-14 15:29] LABS: BASO # 0.1 10^3/uL (0.0-0.2); BASO % 0.7 % (0.0-1.0); EOS # 0.5 10^3/uL (0.0-0.5); EOS % 4.3 % (0.0-3.0); HEMATOCRIT 43.7 % (36.0-47.0); HEMOGLOBIN 13.9 g/dl (12.0-15.5); LYMPH # 5.6 10^3/uL (1.5-5.0); LYMPH % 47.2 % (24.0-44.0); MEAN CORPUSCULAR HEMOGLOBIN 30.7 pg (27.0-33.0); MEAN CORPUSCULAR HGB CONC 31.8 g/dl (32.0-36.5); MEAN CORPUSCULAR VOLUME 96.5 fl (80.0-96.0); MONO % 8.3 % (2.0-8.0); NEUTROPHILS # 4.6 10^3/uL (1.5-8.5); NEUTROPHILS % 39.2 % (36.0-66.0); PLATELET COUNT, AUTOMATED 268 10^3/uL (150-450); RED BLOOD COUNT 4.53 10^6/uL (4.00-5.40); WHITE BLOOD COUNT 11.8 10^3/uL (4.0-10.0)
[2023-10-16 07:36] LABS: CYTOGENETICS FISH FOR PATH SO See Pathology Report; JAK2 MUTATIONS FOR PATH SENDOU See Pathology Report
== END ==
LOC: M PLALAB 14:25
PROVIDERS: ATTEND Physician Assistant
DX: C91.10 Chronic lymphocytic leukemia of B-cell type not having achieved remission (principal); D72.829 Elevated white blood cell count, unspecified

== ENCOUNTER 2023-10-21 07:12 | Day surgery (SDC) | payer MEDICARE, BC ==
[~2023-10-21] VITALS: Ht 160 cm; Wt 98.7 kg
[~2023-10-21 07:12] MED LIST changes: +LIDOCAINE 2% 100MG/5ML SDV (FOR ANES.) As Ordered ONE; +propofoL 200 MG/20 ML VIAL As Ordered ONE
[2023-10-21] MEDS: NS 1,000 ML IV ONE (07:30)
[2023-10-21 09:21] VITALS: TEMP 97.8
[2023-10-21 09:39] VITALS: BP 143/67; O2SAT 94
== END 2023-10-21 09:35 | disposition home or self-care (01) ==
LOC: M OPP 07:12
PROVIDERS: ATTEND Surgery
DX: Z12.11 Encounter for screening for malignant neoplasm of colon (principal); K64.0 First degree hemorrhoids; K57.30 Diverticulosis of large intestine without perforation or abscess without bleeding; I48.91 Unspecified atrial fibrillation; G47.30 Sleep apnea, unspecified; Z79.02 Long term (current) use of antithrombotics/antiplatelets; Z79.82 Long term (current) use of aspirin; Z79.890 Hormone replacement therapy; Z79.899 Other long term (current) drug therapy; Z87.891 Personal history of nicotine dependence; Z88.5 Allergy status to narcotic agent; Z88.8 Allergy status to other drugs, medicaments and biological substances; Z91.048 Other nonmedicinal substance allergy status

== ENCOUNTER → 2023-10-28 | Outpatient (CLI) | payer MEDICARE, BC ==
[~2023-10-28] MED LIST changes: -LIDOCAINE 2% 100MG/5ML SDV (FOR ANES.) As Ordered ONE; -propofoL 200 MG/20 ML VIAL As Ordered ONE
[2023-10-28 15:10] LABS: BASO # 0.1 10^3/uL (0.0-0.2); BASO % 0.5 % (0.0-1.0); EOS # 0.5 10^3/uL (0.0-0.5); EOS % 4.4 % (0.0-3.0); HEMOGLOBIN 13.8 g/dl (12.0-15.5); LYMPH # 5.3 10^3/uL (1.5-5.0); LYMPH % 49.2 % (24.0-44.0); MEAN CORPUSCULAR HEMOGLOBIN 31.2 pg (27.0-33.0); MEAN CORPUSCULAR HGB CONC 32.9 g/dl (32.0-36.5); MONO # 0.9 10^3/uL (0.0-0.8); MONO % 7.9 % (2.0-8.0); NEUTROPHILS # 4.1 10^3/uL (1.5-8.5); NEUTROPHILS % 37.7 % (36.0-66.0); PLATELET COUNT, AUTOMATED 234 10^3/uL (150-450); RED BLOOD COUNT 4.42 10^6/uL (4.00-5.40); WHITE BLOOD COUNT 10.8 10^3/uL (4.0-10.0)
[2023-10-28 15:52] LABS: ALBUMIN 3.1 G/DL (3.2-5.2); ALKALINE PHOSPHATASE 79 U/L (46-116); ALT/SGPT 18 U/L (7.0-40); AST/SGOT 13 U/L (<34); BILIRUBIN,TOTAL 0.9 MG/DL (0.3-1.2); BLOOD UREA NITROGEN 15 MG/DL (9-23); CALCIUM LEVEL 9.2 MG/DL (8.3-10.6); CARBON DIOXIDE LEVEL 28 MMOL/L (20-31); CHLORIDE LEVEL 112 MMOL/L (98-107); CREATININE FOR GFR 0.71 MG/DL (0.55-1.30); GLOMERULAR FILTRATION RATE > 60.0 (>39); GLUCOSE, FASTING 89 MG/DL (74-106); POTASSIUM SERUM 4.3 MMOL/L (3.5-5.1); SODIUM LEVEL 144 MMOL/L (136-145); TOTAL PROTEIN 5.7 G/DL (5.7-8.2)
== END ==
LOC: M PLALAB 14:16
PROVIDERS: ATTEND Internal Medicine Hematology & Oncology
DX: C91.10 Chronic lymphocytic leukemia of B-cell type not having achieved remission (principal)

== ENCOUNTER → 2024-08-30 | Outpatient (REF) | payer MEDICARE, BC, OTHER ==
[~2024-08-30] MED LIST changes: +CIPR-249 PO; +HYDR-3713 PO
== END ==
LOC: M LAB REF 16:46
PROVIDERS: ATTEND Physician Assistant
DX: N39.0 Urinary tract infection, site not specified (principal)

== ENCOUNTER 2024-08-31 03:10 | Emergency (ER) | payer MEDICARE, BC ==
[~2024-08-31] VITALS: Ht 157.5 cm; Wt 100.0 kg
[~2024-08-31 03:10] MED LIST changes: -CIPR-249 PO; -HYDR-3713 PO
[2024-08-31 06:27] LABS: KETONE, URINE AUTO RFX NEGATIVE (NEGATIVE); MUCUS, URINE RFX SMALL (NEGATIVE); NITRITE, URINE AUTO RFX NEGATIVE (NEGATIVE); RBC, URINE AUTO RFX 3 /HPF (0-3); SQUAM EPITHELIAL CELL UR AURFX 8 /HPF (0-6); WBC, URINE AUTO RFX 2 /HPF (0-3)
[2024-08-31 06:28] LABS: LEUKOCYTE ESTERASE UR AUTO RFX TRACE (NEGATIVE)
[2024-08-31] MEDS: KETOROLAC 30 MG/ML 1ML VIAL IV ONE (07:40)
[2024-08-31 07:49] LABS: BASO # 0.1 10^3/uL (0.0-0.2); BASO % 0.5 % (0.0-1.0); EOS # 0.4 10^3/uL (0.0-0.5); EOS % 3.1 % (0.0-3.0); HEMATOCRIT 44.5 % (36.0-47.0); HEMOGLOBIN 14.7 g/dl (12.0-15.5); LYMPH # 4.9 10^3/uL (1.5-5.0); LYMPH % 42.6 % (24.0-44.0); MEAN CORPUSCULAR HEMOGLOBIN 31.2 pg (27.0-33.0); MEAN CORPUSCULAR VOLUME 94.5 fl (80.0-96.0); MONO # 0.8 10^3/uL (0.0-0.8); MONO % 6.8 % (2.0-8.0); NEUTROPHILS # 5.4 10^3/uL (1.5-8.5); NEUTROPHILS % 46.7 % (36.0-66.0); PLATELET COUNT, AUTOMATED 269 10^3/uL (150-450); RED BLOOD COUNT 4.71 10^6/uL (4.00-5.40); WHITE BLOOD COUNT 11.5 10^3/uL (4.0-10.0)
[2024-08-31 08:20] LABS: ALBUMIN 3.4 G/DL (3.2-5.2); ALKALINE PHOSPHATASE 75 U/L (35-104); ALT/SGPT 18 U/L (7.0-40); AST/SGOT 32 U/L (<34); BILIRUBIN,DIRECT 0.3 MG/DL (<0.4); BILIRUBIN,TOTAL 1.3 MG/DL (0.3-1.2); BLOOD UREA NITROGEN 14 MG/DL (9-23); CALCIUM LEVEL 9.1 MG/DL (8.3-10.6); CARBON DIOXIDE LEVEL 26 MMOL/L (20-31); CHLORIDE LEVEL 107 MMOL/L (98-107); CREATININE FOR GFR 0.64 MG/DL (0.55-1.30); GLOMERULAR FILTRATION RATE > 90.0 (>39); GLUCOSE, FASTING 108 MG/DL (74-106); LIPASE 25 U/L (12-53); POTASSIUM SERUM 5.2 MMOL/L (3.5-5.1); SODIUM LEVEL 142 MMOL/L (136-145); TOTAL PROTEIN 6.5 G/DL (5.7-8.2)
[2024-08-31 10:15] VITALS: BP 161/80; TEMP 97.6; O2SAT 95
[2024-08-31] MEDS ORDERED: CIPR-249 PO (10:15)
[2024-08-31] MEDS ORDERED: HYDR-3713 PO (10:39)
== END 2024-08-31 10:26 | disposition home or self-care (01) ==
LOC: M ED 03:10
DX: N30.00 Acute cystitis without hematuria (principal); N10 Acute pyelonephritis; K59.00 Constipation, unspecified; I10 Essential (primary) hypertension; E78.5 Hyperlipidemia, unspecified; Z88.5 Allergy status to narcotic agent; Z88.8 Allergy status to other drugs, medicaments and biological substances; Z91.048 Other nonmedicinal substance allergy status; Z79.82 Long term (current) use of aspirin; Z79.2 Long term (current) use of antibiotics; Z79.899 Other long term (current) drug therapy
CPT/HCPCS: 74176; 76705; 80048; 80076; 81001; 83690; 85025; 87086; 96374; 99284; J1885

== ENCOUNTER → 2024-12-09 | Outpatient (CLI) | payer MEDICARE, BC ==
[~2024-12-09] MED LIST changes: +CIPR-249 PO; +HYDR-3713 PO; +HYDR12.510 PO; -HYDR12CA PO
== END ==
LOC: M WHC 11:53
PROVIDERS: ATTEND Physician Assistant
DX: Z12.31 Encounter for screening mammogram for malignant neoplasm of breast (principal); R92.313 Mammographic fatty tissue density, bilateral breasts; M85.89 Other specified disorders of bone density and structure, multiple sites